=== PATIENT | female | born 1955 | race Caucasian/White ===

== ENCOUNTER 2016-12-28 15:40 | Emergency (ER) | payer OTHER ==
[~2016-12-28] VITALS: Ht 157.5 cm; Wt 90.7 kg
[~2016-12-28 15:40] MED LIST: CALC-1180 PO; FLUO20CA36 PO; LOSA50TA21 PO; MAGN400T30 PO; NAPR500T6 PO; PROP10TA10 PO; RIBO100T6 PO; SIMV40TA5 PO; TOPI25TA PO
--- NOTE | 2016-12-28 16:15 | NUR ---
DR GUILLEN AT THE BEDSIDE FOR EVAL AND EXAM.
[2016-12-28] MEDS ORDERED: FLEET ENEMA 133 ML BOTTLE RC ONE ×4 (17:00→17:55)
[2016-12-28 18:15] VITALS: BP 139/72
[2016-12-28] MEDS ORDERED: ACETAMINOPHEN ES 500 MG TABLET PO ONE (18:15)
--- NOTE | 2016-12-28 18:16 | NUR ---
Patient discharged to home in stable conditon. Written and verbal after care instructions given. Patient verbalizes understanding of instructions.
[2016-12-28] MEDS ORDERED: ACETAMINOPHEN ES 500 MG TABLET ONE (18:21)
== END 2016-12-28 18:17 | disposition home or self-care (01) ==
LOC: ER 15:40
DX: K59.00 Constipation, unspecified (principal); G43.909 Migraine, unspecified, not intractable, without status migrainosus; F32.9 Major depressive disorder, single episode, unspecified; Z88.1 Allergy status to other antibiotic agents
CPT/HCPCS: 74000; 99284; A4663

== ENCOUNTER 2017-03-12 21:12 | Inpatient (IN) | payer OTHER ==
[~2017-03-12] VITALS: Ht 154.9 cm; Wt 82.6 kg
[2017-03-12] MEDS ORDERED: BENZONATATE 100 MG CAPSULE PO ONE (22:30)
[2017-03-12] MEDS ORDERED: HYDROCODONE BIT/HOMATROPINE 5 ML UDC PO ONE (22:30)
[2017-03-12] MEDS ORDERED: ALBUTEROL SULFATE 2.5 MG/3 ML NEBU NEB ONE ×2 (22:30→23:00)
[2017-03-12] MEDS ORDERED: ALBUTEROL SULFATE 2.5 MG/3 ML NEBU ONE ×2 (22:45→23:37)
[2017-03-12] MEDS ORDERED: HYDROCODONE BIT/HOMATROPINE 5 ML UDC ONE (22:48)
[2017-03-12] MEDS ORDERED: BENZONATATE 100 MG CAPSULE ONE (22:48)
[2017-03-12] MEDS ORDERED: MORPHINE SULFATE 2 MG/1 ML DISP.SYRIN IV ONE (23:00)
[2017-03-12] MEDS ORDERED: ONDANSETRON 4 MG/2 ML VIAL IV ONE (23:00)
[2017-03-12] MEDS ORDERED: IV NORMAL SALINE 1000 ML BAG IV ONE (23:00)
[2017-03-12 23:15] LABS: BASOPHILS % (AUTO) 0.6 % (0.0-2.0); EOSINOPHILS % (AUTO) 0.6 % (0.0-7.0); HEMATOCRIT 39.3 % (37-47); HEMOGLOBIN 13.2 G/DL (12.0-16.0); LYMPHOCYTES # (AUTO) 2.9 K/UL (0.8-4.8); LYMPHOCYTES % (AUTO) 45.6 % (20.5-51.5); MEAN CORPUSCULAR HEMOGLOBIN 27.4 UUG (27.0-31.0); MEAN CORPUSCULAR HGB CONC 34 g/dL (32.0-37.0); MEAN CORPUSCULAR VOLUME 81.8 FL (81.0-99.0); MONOCYTES # (AUTO) 0.7 K/UL (0.1-1.30); MONOCYTES % (AUTO) 11.8 % (0.0-11.0); NEUTROPHILS # (AUTO) 2.6 K/UL (1.8-8.9); NEUTROPHILS % (AUTO) 41.4 % (38.5-71.5); PLATELET COUNT (AUTO) 199 K/UL (150-450); RED BLOOD CELL COUNT(AUTO) 4.81 MIL/UL (4.2-5.4); WHITE BLOOD COUNT (AUTO) 6.2 K/UL (4.0-11.2)
[2017-03-12] MEDS ORDERED: ONDANSETRON 4 MG/2 ML VIAL ONE (23:23)
[2017-03-12] MEDS ORDERED: MORPHINE SULFATE 4 MG/1 ML DISP.SYRIN ONE (23:23)
[2017-03-12 23:26] LABS: CREATININE 0.9 mg/dL (0.6-1.3); POTASSIUM 3.6 mmol/L (3.5-5.1)
[2017-03-12 23:31] LABS: BILIRUBIN,DIRECT 0.1 mg/dL (0.0-0.2); BILIRUBIN,TOTAL 0.3 mg/dL (0.2-1.0); TOTAL PROTEIN, SERUM 7.4 g/dL (6.4-8.2)
[2017-03-13] MEDS ORDERED: methylPREDNISolone SOD SUCC 125 MG/2 ML VIAL IV ONE
[2017-03-13] MEDS ORDERED: MAGNESIUM SULFATE/D5W 100 ML IV SCH
[2017-03-13] MEDS ORDERED: methylPREDNISolone SOD SUCC 125 MG/2 ML VIAL ONE (00:10)
[2017-03-13] MEDS ORDERED: MAGNESIUM SULFATE/D5W 100 ML ONE (00:11)
[2017-03-13] MEDS ORDERED: ONDANSETRON 4 MG/2 ML VIAL IV ONE (01:30)
[2017-03-13] MEDS ORDERED: HYDROMORPHONE 1 MG/1 ML DISP.SYRIN IV ONE (01:30)
[2017-03-13] MEDS ORDERED: ALBUTEROL SULFATE 2.5 MG/3 ML NEBU NEB ONE (01:30)
[2017-03-13] MEDS ORDERED: LEVA15HF5 IH (01:42)
[2017-03-13] MEDS ORDERED: LEVO500T2 PO (01:42)
[2017-03-13] MEDS ORDERED: D-ME118S12 PO (01:42)
[2017-03-13] MEDS ORDERED: ALBUTEROL SULFATE 2.5 MG/ 0.5 ML NEBU ONE (01:51)
--- NOTE | 2017-03-13 01:55 | NUR ---
Call placed to [facility], Dr. Clark will be paged.
[2017-03-13] MEDS ORDERED: HYDROMORPHONE 2 MG/1 ML DISP.SYRIN ONE (02:04)
[2017-03-13] MEDS ORDERED: ONDANSETRON 4 MG/2 ML VIAL ONE (02:04)
--- NOTE | 2017-03-13 02:25 | NUR ---
PT WAS BROUGHT IN TO FLOOR VIA TERRY A/O X3. ADMITTED TO [facility] UNDER FRJolly CAGLE/MURIEL HO. INITIATE ADMISSION ASSESSMENT. WILL CALL FOR ORDERS.
--- NOTE | 2017-03-13 02:45 | NUR ---
Pt. admitted to [facility], under care of Dr. Clark Belongs List completed
[2017-03-13 02:51] VITALS: BP 113/58
[2017-03-13] MEDS ORDERED: IV NS 1000 ML 1,000 ML IV PRN (06:23)
[2017-03-13] MEDS ORDERED: Z GUARD REMEDY PASTE 57 GM TUBE TOP PRN (06:30)
[2017-03-13] MEDS ORDERED: ONDANSETRON 4 MG/2 ML VIAL IV PRN (06:30)
[2017-03-13] MEDS ORDERED: CEFTRIAXONE 1 G in IV DEXTROSE 5% 50 ML IV SCH (06:30)
[2017-03-13 06:54] VITALS: BP 108/55
--- NOTE | 2017-03-13 07:00 | NUR ---
AWAITING FOR IV ATB FROM PHARMACY. ENDORSED TO AM NURSE.
[2017-03-13] MEDS: IPRATROPIUM BROMIDE 0.5 MG/2.5 ML NEBU NEB SCH ×4 (07:49→20:02)
[2017-03-13] MEDS: ALBUTEROL SULFATE 2.5 MG/ 0.5 ML NEBU NEB SCH ×4 (07:50→20:03)
[2017-03-13] MEDS ORDERED: PROMETHAZINE/CODEINE 5 ML UDC PO PRN (08:00)
[2017-03-13] MEDS: LOSARTAN POTASSIUM 50 MG TABLET PO SCH ×2 (08:13→17:02)
[2017-03-13] MEDS: MAGNESIUM OXIDE 400 MG TABLET PO SCH (08:14)
[2017-03-13] MEDS: PROPRANOLOL HCL 10 MG TABLET PO SCH ×2 (08:14→17:02)
--- NOTE | 2017-03-13 08:17 | NUR ---
segundo and harish not given bp 98/64 Addendum: 03/13/17 at 0817 by KAREN HARLEY RN Amended: Links added.
[2017-03-13] MEDS: NAPROXEN 500 MG TABLET PO PRN (08:38)
[2017-03-13] MEDS: GUAIFENESIN/CODEINE 5 ML LIQUID UDC PO PRN ×3 (08:39→21:39)
--- NOTE | 2017-03-13 08:43 | NUR ---
medicated for persistent cough, also medicated for generalized body aches. Addendum: 03/13/17 at 0844 by KAREN HARLEY RN Amended: Links added.
[2017-03-13] MEDS ORDERED: AZITHROMYCIN IV 250 MG in IV DEXTROSE 5% 250 ML IV SCH (09:00)
[2017-03-13] MEDS: LEVOFLOXACIN 750MG/D5W 150 ML IV SCH (09:26)
[2017-03-13 11:16] VITALS: BP 98/51
--- NOTE | 2017-03-13 13:31 | NUR ---
SEEN BY DR CAMPO. ORDERS RECEIVED Addendum: 03/13/17 at 1331 by KAREN HARLEY RN Amended: Links added.
[2017-03-13] MEDS: methylPREDNISolone SOD SUCC 125 MG/2 ML VIAL IV SCH ×2 (13:46→21:39)
--- NOTE | 2017-03-13 13:47 | NUR ---
medicated for persistent cough. Addendum: 03/13/17 at 1347 by KAREN HARLEY RN Amended: Links added.
[2017-03-13 15:07] VITALS: BP 132/75
[2017-03-13] MEDS: MONTELUKAST SODIUM 10 MG TABLET PO SCH (17:02)
--- NOTE | 2017-03-13 19:30 | NUR ---
RECEIVED SHIFT REPORT FROM PREVIOUS SHIFT NURSE. PATIENT IS RECEIVING BREATHING TREATMENT, IN STABLE CONDITION, NO S/S OF DISTRESS. PATIENT IS AMBULATORY, A/OX3. PATIENT IS SAFE, LOCKED/LOW POSITION WITH SIDE RAILS UPX2. SAFETY AND COMFORT WILL BE PROVIDED THROUGHOUT SHIFT.
[2017-03-13 20:00] VITALS: BP 137/40
[2017-03-13] MEDS: SIMVASTATIN 40 MG TABLET PO SCH (21:39)
[2017-03-14] MEDS: ZOLPIDEM 5 MG TABLET PO PRN ×2 (01:26→22:19)
[2017-03-14] MEDS: ALBUTEROL SULFATE 2.5 MG/ 0.5 ML NEBU NEB SCH ×5 (02:42→19:20)
[2017-03-14 04:00] VITALS: BP 135/64
[2017-03-14] MEDS: methylPREDNISolone SOD SUCC 125 MG/2 ML VIAL IV SCH ×3 (06:14→21:13)
[2017-03-14 06:25] LABS: BASOPHILS % (AUTO) 0.1 % (0.0-2.0); EOSINOPHILS % (AUTO) 0.1 % (0.0-7.0); HEMATOCRIT 38.5 % (37-47); HEMOGLOBIN 12.5 G/DL (12.0-16.0); LYMPHOCYTES # (AUTO) 1.5 K/UL (0.8-4.8); LYMPHOCYTES % (AUTO) 11.6 % (20.5-51.5); MEAN CORPUSCULAR HGB CONC 32 g/dL (32.0-37.0); MEAN CORPUSCULAR VOLUME 83.4 FL (81.0-99.0); MONOCYTES # (AUTO) 0.5 K/UL (0.1-1.30); MONOCYTES % (AUTO) 3.9 % (0.0-11.0); NEUTROPHILS # (AUTO) 10.9 K/UL (1.8-8.9); NEUTROPHILS % (AUTO) 84.3 % (38.5-71.5); PLATELET COUNT (AUTO) 228 K/UL (150-450); RED BLOOD CELL COUNT(AUTO) 4.62 MIL/UL (4.2-5.4); WHITE BLOOD COUNT (AUTO) 12.9 K/UL (4.0-11.2)
[2017-03-14 06:49] LABS: THYROID STIMULATING HORMONE 0.743 mIU/mL (0.358-3.740)
[2017-03-14 06:53] LABS: BILIRUBIN,TOTAL 0.1 mg/dL (0.2-1.0); CREATININE 0.7 mg/dL (0.6-1.3); PHOSPHOROUS 2.6 mg/dL (2.5-4.9); POTASSIUM 4.3 mmol/L (3.5-5.1); TOTAL PROTEIN, SERUM 6.7 g/dL (6.4-8.2)
[2017-03-14] MEDS: IPRATROPIUM BROMIDE 0.5 MG/2.5 ML NEBU NEB SCH ×4 (07:34→19:19)
[2017-03-14] MEDS: PROPRANOLOL HCL 10 MG TABLET PO SCH ×2 (09:14→17:12)
[2017-03-14] MEDS: LOSARTAN POTASSIUM 50 MG TABLET PO SCH ×2 (09:15→17:12)
[2017-03-14] MEDS: MAGNESIUM OXIDE 400 MG TABLET PO SCH (09:15)
[2017-03-14] MEDS: LEVOFLOXACIN 750MG/D5W 150 ML IV SCH (09:22)
[2017-03-14] MEDS: FUROSEMIDE 20 MG/2 ML VIAL IV SCH (11:04)
[2017-03-14] MEDS: GUAIFENESIN/CODEINE 5 ML LIQUID UDC PO PRN (11:04)
[2017-03-14 11:34] VITALS: BP 116/79
[2017-03-14 15:30] VITALS: BP 137/75
[2017-03-14] MEDS: MONTELUKAST SODIUM 10 MG TABLET PO SCH (17:12)
--- NOTE | 2017-03-14 20:00 | NUR ---
PT ALERT AWAKE IN ROOM COMPLAINING OF CONSTIPATION PAST 4 DAYS WITH SOME NASAL CONGESTION. DENIES ANY PAIN OR SHORTNESS OF BREATHE AT THIS TIME. VITAL SIGNS ARE WNL. RIGHT AC HEP LOCK NOTED PAIN UPON FLUSHING NS. DR HO NOTIFIED OF PT'S REQUEST. CONTINUE TO MONITOR. CALL LIGHT PLACED WITHIN REACH.
[2017-03-14] MEDS: SIMVASTATIN 40 MG TABLET PO SCH (20:06)
[2017-03-14 20:37] VITALS: BP 133/84
[2017-03-14] MEDS: BISACODYL 5 MG TABLET.DR PO PRN (21:58)
[2017-03-14] MEDS ORDERED: BISACODYL 5 MG TABLET.DR PO ONE (22:11)
--- NOTE | 2017-03-15 01:00 | NUR ---
PT ASLEEP AT THIS TIME. NO S/S OF ACUTE DISTRESS. CONTINUE TO MONITOR.
[2017-03-15 04:59] VITALS: BP 155/80
[2017-03-15] MEDS: methylPREDNISolone SOD SUCC 125 MG/2 ML VIAL IV SCH ×3 (06:46→21:03)
[2017-03-15] MEDS: IPRATROPIUM BROMIDE 0.5 MG/2.5 ML NEBU NEB SCH ×4 (07:00→19:47)
[2017-03-15] MEDS: ALBUTEROL SULFATE 2.5 MG/ 0.5 ML NEBU NEB SCH ×4 (07:00→19:47)
[2017-03-15] MEDS: CETIRIZINE HCL 10 MG TABLET PO SCH (09:55)
[2017-03-15] MEDS: MAGNESIUM OXIDE 400 MG TABLET PO SCH (09:55)
[2017-03-15] MEDS: FUROSEMIDE 20 MG/2 ML VIAL IV SCH (09:56)
[2017-03-15] MEDS: LEVOFLOXACIN 750MG/D5W 150 ML IV SCH (10:01)
[2017-03-15] MEDS: PROPRANOLOL HCL 10 MG TABLET PO SCH ×2 (10:09→17:29)
[2017-03-15] MEDS: LOSARTAN POTASSIUM 50 MG TABLET PO SCH ×2 (10:11→17:28)
[2017-03-15] MEDS: GUAIFENESIN/CODEINE 5 ML LIQUID UDC PO PRN ×2 (10:23→15:15)
[2017-03-15] MEDS ORDERED: PROMETHAZINE/CODEINE 5 ML UDC PO PRN ×2 (11:00→11:30)
[2017-03-15 11:15] VITALS: BP 147/89
[2017-03-15] MEDS ORDERED: GUAIFENESIN/CODEINE 5 ML LIQUID UDC PO PRN (11:15)
[2017-03-15] MEDS: LEVOFLOXACIN 500 MG TABLET PO SCH (13:59)
[2017-03-15 15:40] VITALS: BP 151/94
[2017-03-15] MEDS: MONTELUKAST SODIUM 10 MG TABLET PO SCH (17:29)
--- NOTE | 2017-03-15 18:30 | NUR ---
PT. WALKING AROUND THE UNIT AND SITTING UP IN CHAIR ALL SHIFT. PT. HAS A MODERATE COUGH THAT IS SLIGHTLY PRODUCTIVE AT END SHIFT. NO ACUTE DISTRESS.
--- NOTE | 2017-03-15 19:30 | NUR ---
PT IN ROOM ALERT AWAKE IN NO ACUTE DISTRESS. OCCASIONAL PRESENT WITH MINIMAL PRODUCTIVE COUGH. OXYGEN SAT NOTED 95% RA. NO S/S OF RESP DISTRESS. PT INSTRUCTED TO USE OXYGEN VIA N/C AND TO CONTINUE BREATHING TX SCHEDULED. PT TO CONTINUE RECEIVING STOOL SOFTNER DUE TO CONSTIPATION. PT REQUESTED AMBIEN FOR TONIGHT. CALL LIGHT PLACED WITHIN REACH. CONTINUE TO MONITOR.
[2017-03-15] MEDS: SIMVASTATIN 40 MG TABLET PO SCH (20:03)
[2017-03-15] MEDS: BISACODYL 5 MG TABLET.DR PO PRN (20:04)
[2017-03-15 20:11] VITALS: BP 141/81
[2017-03-15] MEDS: HYDROCODONE BIT/HOMATROPINE 5 ML UDC PO PRN (20:54)
[2017-03-15] MEDS: ZOLPIDEM 5 MG TABLET PO PRN (22:43)
[2017-03-16 06:07] VITALS: BP 154/80
[2017-03-16] MEDS: methylPREDNISolone SOD SUCC 125 MG/2 ML VIAL IV SCH (06:45)
[2017-03-16] MEDS: ALBUTEROL SULFATE 2.5 MG/ 0.5 ML NEBU NEB SCH ×4 (07:17→19:04)
[2017-03-16] MEDS: IPRATROPIUM BROMIDE 0.5 MG/2.5 ML NEBU NEB SCH ×4 (07:17→19:04)
--- NOTE | 2017-03-16 08:00 | NUR ---
PT ASLEEP AT THIS TIME. NO S/S OF ACUTE DISTRESS. CONTINUE TO MONITOR. CALL LIGHT WITH IN REACH ,PT IS AXOX4
[2017-03-16] MEDS: PROPRANOLOL HCL 10 MG TABLET PO SCH ×2 (08:05→16:21)
[2017-03-16] MEDS: MAGNESIUM OXIDE 400 MG TABLET PO SCH (08:05)
[2017-03-16] MEDS: CETIRIZINE HCL 10 MG TABLET PO SCH (08:05)
[2017-03-16] MEDS: LOSARTAN POTASSIUM 50 MG TABLET PO SCH ×2 (08:06→16:21)
[2017-03-16] MEDS: FUROSEMIDE 20 MG/2 ML VIAL IV SCH (08:23)
[2017-03-16] MEDS ORDERED: LEVOFLOXACIN 500 MG TABLET PO SCH (09:00)
[2017-03-16 11:13] VITALS: BP 116/78
--- NOTE | 2017-03-16 11:14 | NUR ---
PT C/O SOB AND HOT ,DIZZY , CHECK THE PT BP IS 116/78 RESP 20 PULSE 74 TEMP 98 ORAL O2 97 ON 2L MD KONG MADE AWARE.PT IS RESTING IN HER BED
[2017-03-16 11:35] VITALS: BP 133/71
[2017-03-16] MEDS: LEVOFLOXACIN 500 MG TABLET PO SCH (12:51)
[2017-03-16] MEDS: methylPREDNISolone SOD SUCC 40 MG/ML VIAL IV SCH ×2 (13:39→21:01)
[2017-03-16] MEDS ORDERED: methylPREDNISolone SOD SUCC 125 MG/2 ML VIAL IV SCH (14:00)
[2017-03-16 16:02] VITALS: BP 145/75
[2017-03-16] MEDS: FLUTICASONE/VILANTEROL 1 EACH BLST.W.DEV INH SCH (16:20)
[2017-03-16] MEDS: MONTELUKAST SODIUM 10 MG TABLET PO SCH (17:39)
--- NOTE | 2017-03-16 19:30 | NUR ---
Pt alert awake in room in no respiratory distress. Currently receiving nebulizer treatment sitting in chair. Non productive cough still present and continue antibiotic Levaquin PO therapy. Stated having a bowel movement today. No pain noted at this time. Continue to monitor. Call light placed within reach and encouraged to continue increasing fluid intake.
[2017-03-16 20:00] VITALS: BP 140/74
[2017-03-16] MEDS: SIMVASTATIN 40 MG TABLET PO SCH (20:00)
[2017-03-16] MEDS: BISACODYL 5 MG TABLET.DR PO PRN (20:00)
[2017-03-16] MEDS ORDERED: FLUTICASONE/SALMETEROL 250/50 INHALER INH SCH (21:00)
[2017-03-16] MEDS: HYDROCODONE BIT/HOMATROPINE 5 ML UDC PO PRN (21:01)
--- NOTE | 2017-03-17 01:00 | NUR ---
Pt is asleep at this time. No acute distress noted or increased coughing. Continue to monitor.
--- NOTE | 2017-03-17 05:00 | NUR ---
Pt asleep in room in no acute distress. No ambien needed per pt earlier last night.
[2017-03-17] MEDS: methylPREDNISolone SOD SUCC 40 MG/ML VIAL IV SCH ×2 (05:51→20:49)
[2017-03-17 06:04] VITALS: BP 137/77
[2017-03-17] MEDS: ALBUTEROL SULFATE 2.5 MG/ 0.5 ML NEBU NEB SCH ×4 (06:35→19:09)
[2017-03-17] MEDS: IPRATROPIUM BROMIDE 0.5 MG/2.5 ML NEBU NEB SCH ×4 (06:35→19:09)
[2017-03-17] MEDS: FLUTICASONE/VILANTEROL 1 EACH BLST.W.DEV INH SCH (09:16)
[2017-03-17] MEDS: CETIRIZINE HCL 10 MG TABLET PO SCH (09:20)
[2017-03-17] MEDS: PROPRANOLOL HCL 10 MG TABLET PO SCH ×2 (09:20→16:39)
[2017-03-17] MEDS: LOSARTAN POTASSIUM 50 MG TABLET PO SCH ×2 (09:21→16:39)
[2017-03-17] MEDS: MAGNESIUM OXIDE 400 MG TABLET PO SCH (09:21)
--- NOTE | 2017-03-17 09:30 | NUR ---
IV INFILTRATE RESTART A NEW LINE ON RT HAND #[id number]
[2017-03-17] MEDS ORDERED: DEXTROSE 50% 50 ML DISP.SYRIN IV PRN (10:15)
[2017-03-17] MEDS: FUROSEMIDE 20 MG/2 ML VIAL IV SCH (10:36)
[2017-03-17 11:25] LABS: BASOPHILS # (AUTO) 0.1 K/uL (0.0-8.0); BASOPHILS % (AUTO) 0.6 % (0.0-2.0); HEMOGLOBIN 14.4 G/DL (12.0-16.0); LYMPHOCYTES # (AUTO) 2.3 K/UL (0.8-4.8); LYMPHOCYTES % (AUTO) 16.8 % (20.5-51.5); MEAN CORPUSCULAR HEMOGLOBIN 27.9 UUG (27.0-31.0); MEAN CORPUSCULAR HGB CONC 34 g/dL (32.0-37.0); MEAN CORPUSCULAR VOLUME 81.7 FL (81.0-99.0); MONOCYTES # (AUTO) 0.5 K/UL (0.1-1.30); MONOCYTES % (AUTO) 3.7 % (0.0-11.0); NEUTROPHILS # (AUTO) 10.6 K/UL (1.8-8.9); NEUTROPHILS % (AUTO) 78.9 % (38.5-71.5); PLATELET COUNT (AUTO) 341 K/UL (150-450); RED BLOOD CELL COUNT(AUTO) 5.14 MIL/UL (4.2-5.4); WHITE BLOOD COUNT (AUTO) 13.5 K/UL (4.0-11.2)
[2017-03-17 11:37] VITALS: BP 150/80
[2017-03-17 11:37] LABS: BILIRUBIN,TOTAL 0.3 mg/dL (0.2-1.0); CREATININE 0.9 mg/dL (0.6-1.3); PHOSPHOROUS 2.9 mg/dL (2.5-4.9); POTASSIUM 3.8 mmol/L (3.5-5.1)
[2017-03-17] MEDS: HYDROCODONE BIT/HOMATROPINE 5 ML UDC PO PRN ×2 (11:37→15:39)
[2017-03-17] MEDS: BLOOD SUGAR DIAGNOSTIC 1 EACH STRIP VI SCH ×3 (12:08→20:52)
[2017-03-17] MEDS: INSULIN REGULAR, HUMAN 300 UNIT/3 ML VIAL SQ PRN ×3 (12:13→20:59)
[2017-03-17] MEDS ORDERED: hydrALAZINE HCL 25 MG TABLET PO PRN (13:00)
[2017-03-17] MEDS ORDERED: ALBUTEROL SULFATE 2.5 MG/3 ML NEBU NEB PRN (13:00)
[2017-03-17] MEDS ORDERED: IPRATROPIUM BROMIDE 0.5 MG/2.5 ML NEBU NEB PRN (13:00)
[2017-03-17] MEDS ORDERED: GUAIFENESIN/CODEINE 5 ML LIQUID UDC PO PRN (13:00)
[2017-03-17] MEDS: LEVOFLOXACIN 500 MG TABLET PO SCH (13:13)
[2017-03-17] MEDS ORDERED: ALBUTEROL SULFATE 2.5 MG/ 0.5 ML NEBU NEB PRN (13:30)
[2017-03-17] MEDS: ACETAMINOPHEN 325 MG TABLET PO PRN (14:43)
[2017-03-17 15:37] VITALS: BP 147/88
--- NOTE | 2017-03-17 17:00 | NUR ---
STABLE CONDITION NO ACUTE DISTRESS PAIN AND COUGHING UNDER CONTROL SAFETY MEASURE PROVIDED CALL LIGHT WITHIN REACH AND INSTRUCTION TO CALL WHEN NEEDED
[2017-03-17] MEDS: MONTELUKAST SODIUM 10 MG TABLET PO SCH (17:31)
--- NOTE | 2017-03-17 19:30 | NUR ---
Received patient sitting comfortably in the chair. No acute distress noted. Patient is currently getting a breathing tx at the moment. Noted dry cough. Safety initiated, call light within reach. Will continue to monitor.
[2017-03-17 20:15] VITALS: BP 129/73
[2017-03-17] MEDS: BISACODYL 5 MG TABLET.DR PO PRN (20:49)
[2017-03-17] MEDS: SIMVASTATIN 40 MG TABLET PO SCH (20:49)
[2017-03-17] MEDS: ZOLPIDEM 5 MG TABLET PO PRN (22:04)
--- NOTE | 2017-03-17 22:30 | NUR ---
Pt alert awake in room in no acute distress. Verbalized still having episodes of non productive cough. Pt states she would like to have her cough syrup medication sometime tonight and will let nurse know. Denies any pain. Refuses oxygen at this time. No bowel movement today. Continue to monitor.
[2017-03-18] MEDS: HYDROCODONE BIT/HOMATROPINE 5 ML UDC PO PRN ×3 (00:10→14:06)
--- NOTE | 2017-03-18 01:00 | NUR ---
Pt able to sleep after PRN cough syrup given. No episodes of coughing at this time. Continue to monitor.
[2017-03-18 04:52] VITALS: BP 129/78
[2017-03-18] MEDS: BLOOD SUGAR DIAGNOSTIC 1 EACH STRIP VI SCH ×4 (06:49→21:05)
[2017-03-18 06:54] LABS: MEAN CORPUSCULAR HEMOGLOBIN 28.5 uug (24.7-32.8)
[2017-03-18] MEDS: INSULIN REGULAR, HUMAN 300 UNIT/3 ML VIAL SQ PRN ×4 (06:56→21:07)
[2017-03-18 07:06] LABS: BASOPHILS % (AUTO) 0.2 % (0.0-2.0); HEMATOCRIT 38.8 % (31.2-41.9); HEMOGLOBIN 13.5 g/dL (10.9-14.3); LYMPHOCYTES # (AUTO) 2.5 K/uL (20.0-40.0); LYMPHOCYTES % (AUTO) 25.2 % (20.5-51.5); MEAN CORPUSCULAR HGB CONC 35 g/dL (32.3-35.6); MEAN CORPUSCULAR VOLUME 82.2 fL (75.5-95.3); MONOCYTES # (AUTO) 0.4 K/uL (2.0-10.0); MONOCYTES % (AUTO) 4.1 % (0.0-11.0); NEUTROPHILS # (AUTO) 7.1 K/uL (1.8-8.9); NEUTROPHILS % (AUTO) 70.5 % (38.5-71.5); PLATELET COUNT (AUTO) 283 K/uL (179-408); RED BLOOD CELL COUNT(AUTO) 4.73 MIL/uL (3.63-4.92)
[2017-03-18] MEDS: IPRATROPIUM BROMIDE 0.5 MG/2.5 ML NEBU NEB SCH ×4 (07:12→19:35)
[2017-03-18] MEDS: ALBUTEROL SULFATE 2.5 MG/ 0.5 ML NEBU NEB SCH ×4 (07:12→19:35)
[2017-03-18 07:54] LABS: BILIRUBIN,TOTAL 0.2 mg/dL (0.2-1.0); CREATININE 0.8 mg/dL (0.6-1.3); MAGNESIUM 1.9 mg/dL (1.8-2.4); PHOSPHOROUS 3.8 mg/dL (2.5-4.9); POTASSIUM 4.5 mmol/L (3.5-5.1); TOTAL PROTEIN, SERUM 6.1 g/dL (6.4-8.2)
--- NOTE | 2017-03-18 08:00 | NUR ---
Pt wheezing and coughing. HHN tx given by RT. Notified MD that pt has no relief from coughing and cough medicine not working. CXR ordered. Discussed plan of care with patient re: proper management of her wheezing, cough, and pain management. Call light is within reach. Pt agreeable with plan of care
[2017-03-18] MEDS: CETIRIZINE HCL 10 MG TABLET PO SCH (08:10)
[2017-03-18] MEDS: FLUTICASONE/VILANTEROL 1 EACH BLST.W.DEV INH SCH (08:10)
[2017-03-18] MEDS: FUROSEMIDE 20 MG/2 ML VIAL IV SCH (08:10)
[2017-03-18] MEDS: MAGNESIUM OXIDE 400 MG TABLET PO SCH (08:10)
[2017-03-18] MEDS: methylPREDNISolone SOD SUCC 40 MG/ML VIAL IV SCH ×3 (08:10→21:03)
[2017-03-18] MEDS: PROPRANOLOL HCL 10 MG TABLET PO SCH ×2 (08:15→16:40)
[2017-03-18] MEDS: LOSARTAN POTASSIUM 50 MG TABLET PO SCH ×2 (08:15→16:39)
[2017-03-18] MEDS: NAPROXEN 500 MG TABLET PO PRN ×2 (08:20→21:02)
[2017-03-18 10:31] LABS: BAND % (MANUAL) 2 % (0-10); LYMPHOCYTES % (MANUAL) 26 % (20-40); METAMYELOCYTES % 2 % (0-1); MONOCYTES % (MANUAL) 4 % (2-10); NEUTROPHILS % (MANUAL) 66 % (42-75)
[2017-03-18 12:08] VITALS: BP 144/78
[2017-03-18] MEDS: LEVOFLOXACIN 500 MG TABLET PO SCH (13:02)
--- NOTE | 2017-03-18 15:49 | NUR ---
Clinical Pharmacy Note: Vancomycin Pharmacy to Dose Subjective: To start vancomycin in this 61 y/o female for "documented infection" - MD note mentions worsening cough despite other abx Objective: height 154cm 82kg BUN 17 Scr 0.8 Wbc 10 temp 98.1 Assessment/Plan Will start vanco 1gm q17hr for estimated trough 14.79, first dose todat at 1600. Will check torugh before 4th scheduled dose (not ordered yet). Will follow
[2017-03-18] MEDS: VANCOMYCIN IV 1 G in PREMIXED 0 EACH IV SCH (16:35)
[2017-03-18 16:38] VITALS: BP 109/58
[2017-03-18] MEDS: MONTELUKAST SODIUM 10 MG TABLET PO SCH (16:40)
[2017-03-18] MEDS: BISACODYL 5 MG TABLET.DR PO PRN (16:43)
[2017-03-18 17:41] LABS: *BILIRUBIN,URIN NEGATIVE (NEGATIVE); *BLOOD, URINE NEGATIVE (NEGATIVE); *CLARITY,URINE CLEAR (CLEAR); *COLOR,URINE LIGHT YELLOW (YELLOW); *KETONES,URINE NEGATIVE (NEGATIVE); *PROTEIN,URINE NEGATIVE (NEGATIVE); *UROBILINOGEN,URINE 0.2 E.U./dl (NORMAL); LEUKOCYTE ESTERASE ,URINE NEGATIVE (NEGATIVE); NITRITE, URINE NEGATIVE (NEGATIVE); UGLUCOSE NEGATIVE (NEGATIVE)
--- NOTE | 2017-03-18 18:00 | NUR ---
Pt not wheezing anymore. Increased in solumedrol effective. Gave pt laxative due to pt has had no bm x 2 days awaiting result. Call light is within reach.
[2017-03-18 18:12] LABS: SQUAMOUS EPITHELIAL CELL,UR FEW /HPF (NONE SEEN); WBC,URINE NONE SEEN /HPF (0-3)
--- NOTE | 2017-03-18 18:53 | NUR ---
Urine sent earlier prior to starting the vancomycin dose. IV was restarted on the left hand with #22 gauge.
--- NOTE | 2017-03-18 19:35 | NUR ---
PT RECEIVED, IN CHAIR, AWAKE. A/OX3. ABLE TO MAKE KNOWN. V/S STABLE. IN NO ACUTE DISTRESS. PT C/O OF GENERALIZED PAIN, FROM SEVERE COUGHING. WILL ADMIN PAIN MEDICATION ORDERED. IV INTACT AND PATENT. ON RA, TOLERATING WELL. NO C/O OF SOB. COUGH CEASED. SAFETY MEASURES IMPLEMENTED. CALL LIGHT WITHIN REACH.
[2017-03-18 20:28] VITALS: BP 138/75
[2017-03-18] MEDS ORDERED: methylPREDNISolone SOD SUCC 40 MG/ML VIAL IV SCH (21:00)
[2017-03-18] MEDS: ZOLPIDEM 5 MG TABLET PO PRN (21:02)
[2017-03-18] MEDS: SIMVASTATIN 40 MG TABLET PO SCH (21:02)
[2017-03-19 04:50] VITALS: BP 124/66
[2017-03-19] MEDS: methylPREDNISolone SOD SUCC 40 MG/ML VIAL IV SCH ×3 (05:43→22:06)
[2017-03-19] MEDS: HYDROCODONE BIT/HOMATROPINE 5 ML UDC PO PRN ×2 (05:43→21:54)
[2017-03-19 06:04] LABS: BASOPHILS % (AUTO) 0.4 % (0.0-2.0); HEMOGLOBIN 13.3 G/DL (12.0-16.0); LYMPHOCYTES # (AUTO) 2.3 K/UL (0.8-4.8); LYMPHOCYTES % (AUTO) 18.7 % (20.5-51.5); MEAN CORPUSCULAR HEMOGLOBIN 27.4 UUG (27.0-31.0); MEAN CORPUSCULAR HGB CONC 33 g/dL (32.0-37.0); MEAN CORPUSCULAR VOLUME 82.8 FL (81.0-99.0); MONOCYTES # (AUTO) 0.5 K/UL (0.1-1.30); MONOCYTES % (AUTO) 4.3 % (0.0-11.0); NEUTROPHILS # (AUTO) 9.6 K/UL (1.8-8.9); NEUTROPHILS % (AUTO) 76.6 % (38.5-71.5); PLATELET COUNT (AUTO) 343 K/UL (150-450); RED BLOOD CELL COUNT(AUTO) 4.83 MIL/UL (4.2-5.4); WHITE BLOOD COUNT (AUTO) 12.4 K/UL (4.0-11.2)
[2017-03-19 06:16] LABS: BILIRUBIN,TOTAL 0.3 mg/dL (0.2-1.0); CREATININE 0.8 mg/dL (0.6-1.3); MAGNESIUM 2.2 mg/dL (1.8-2.4); PHOSPHOROUS 3.5 mg/dL (2.5-4.9); POTASSIUM 4.3 mmol/L (3.5-5.1); TOTAL PROTEIN, SERUM 6.1 g/dL (6.4-8.2)
--- NOTE | 2017-03-19 06:44 | NUR ---
END OF SHIFT NOTES. PT SLEPT WELL THROUGHOUT SHIFT. IN STABLE CONDITION. WOKE UP WITH CONGESTION AND COUGH. ADMINISTERED SOLUMEDROL AND HYDROMET ORDERED. IV INTACT AND PATENT. HOB ELEVATED. 2L NC IN PLACE. NO C/O OF SOB. PAIN MANAGED. CONT TO HAVE NO BM, C/O CONSTIPATION AND STOMACH PAIN. WILL ENDORSE TO DAYSHIFT. SAFETY MAINTAINED. CALL LIGHT WITHIN REACH.
[2017-03-19] MEDS: BLOOD SUGAR DIAGNOSTIC 1 EACH STRIP VI SCH ×4 (06:59→21:56)
[2017-03-19] MEDS: ALBUTEROL SULFATE 2.5 MG/ 0.5 ML NEBU NEB SCH ×4 (07:08→19:50)
[2017-03-19] MEDS: IPRATROPIUM BROMIDE 0.5 MG/2.5 ML NEBU NEB SCH ×4 (07:08→19:50)
--- NOTE | 2017-03-19 07:45 | NUR ---
Awake, alert, oriented x 4, sitting at the edge of the bed, on HHN, complaining of dryness/congestion of nasal passages. O2 changed to humidified NC at 2L.
[2017-03-19] MEDS ORDERED: MAGNESIUM CITRATE 296 ML BOTTLE PO ONE (08:30)
--- NOTE | 2017-03-19 08:30 | NUR ---
No BM x 4 days. Mag Citrate po given.
[2017-03-19] MEDS: FLUTICASONE/VILANTEROL 1 EACH BLST.W.DEV INH SCH (08:58)
[2017-03-19] MEDS: VANCOMYCIN IV 1 G in PREMIXED 0 EACH IV SCH (08:58)
[2017-03-19] MEDS: FUROSEMIDE 20 MG/2 ML VIAL IV SCH (08:58)
[2017-03-19] MEDS: CETIRIZINE HCL 10 MG TABLET PO SCH (08:59)
[2017-03-19] MEDS: PROPRANOLOL HCL 10 MG TABLET PO SCH ×2 (08:59→17:12)
[2017-03-19] MEDS: MAGNESIUM OXIDE 400 MG TABLET PO SCH (08:59)
[2017-03-19] MEDS: LOSARTAN POTASSIUM 50 MG TABLET PO SCH ×2 (08:59→17:11)
[2017-03-19] MEDS ORDERED: GLYCERIN ADULT RECTAL SUPP EACH RC ONE (09:30)
--- NOTE | 2017-03-19 10:00 | NUR ---
CT of sinus done
[2017-03-19 11:42] VITALS: BP 118/77
[2017-03-19] MEDS: LEVOFLOXACIN 500 MG TABLET PO SCH (12:20)
[2017-03-19] MEDS: INSULIN REGULAR, HUMAN 300 UNIT/3 ML VIAL SQ PRN ×3 (12:22→22:11)
--- NOTE | 2017-03-19 12:30 | NUR ---
Glycerin suppository given after Mag Citrate was finished
--- NOTE | 2017-03-19 13:55 | NUR ---
Clinical Pharmacy Note: Vancomycin Pharmacy to Dose Subjective: To contiue vancomycin in this 61 y/o female for "documented infection"(acute on chronic bacterial bronchitis, possible pneumonitis/pneumonia) - MD note mentions worsening cough despite other abx Objective: height 154cm 82kg BUN 19 Scr 0.8 Wbc 12.4 temp 97.7 Assessment/Plan Will continue vanco but change dose to 1gm q16hr for estimated trough 15 for possible pna, first dose today at 0900 . Will check trough before 4th scheduled dose (not ordered yet). Will follow
--- NOTE | 2017-03-19 14:00 | NUR ---
Ambulating in the hallway, feeling better. Had 2 small bowel movement
[2017-03-19 16:03] VITALS: BP 151/76
[2017-03-19] MEDS: MONTELUKAST SODIUM 10 MG TABLET PO SCH (17:10)
--- NOTE | 2017-03-19 18:13 | NUR ---
Not in distress. Afebrile
[2017-03-19 20:03] VITALS: BP 138/79
[2017-03-19] MEDS: SIMVASTATIN 40 MG TABLET PO SCH (21:54)
[2017-03-19] MEDS: ACETAMINOPHEN 325 MG TABLET PO PRN (21:54)
[2017-03-19] MEDS: ZOLPIDEM 5 MG TABLET PO PRN (23:50)
[2017-03-20] MEDS: VANCOMYCIN IV 1 G in PREMIXED 0 EACH IV SCH ×2 (01:13→17:39)
[2017-03-20 04:00] VITALS: BP 137/74
[2017-03-20] MEDS: methylPREDNISolone SOD SUCC 40 MG/ML VIAL IV SCH ×3 (06:29→20:07)
[2017-03-20 06:49] LABS: BILIRUBIN,TOTAL 0.4 mg/dL (0.2-1.0); CREATININE 0.8 mg/dL (0.6-1.3); MAGNESIUM 2.1 mg/dL (1.8-2.4); POTASSIUM 4.6 mmol/L (3.5-5.1); TOTAL PROTEIN, SERUM 5.9 g/dL (6.4-8.2)
[2017-03-20 06:52] LABS: BASOPHILS # (AUTO) 0.1 K/uL (0.0-8.0); BASOPHILS % (AUTO) 0.6 % (0.0-2.0); EOSINOPHILS % (AUTO) 0.1 % (0.0-7.0); HEMATOCRIT 38.7 % (31.2-41.9); LYMPHOCYTES # (AUTO) 2.6 K/uL (20.0-40.0); LYMPHOCYTES % (AUTO) 17.8 % (20.5-51.5); MEAN CORPUSCULAR HEMOGLOBIN 27.9 uug (24.7-32.8); MEAN CORPUSCULAR HGB CONC 34 g/dL (32.3-35.6); MEAN CORPUSCULAR VOLUME 83.1 fL (75.5-95.3); MONOCYTES # (AUTO) 0.6 K/uL (2.0-10.0); NEUTROPHILS # (AUTO) 11.2 K/uL (1.8-8.9); NEUTROPHILS % (AUTO) 77.5 % (38.5-71.5); PLATELET COUNT (AUTO) 340 K/uL (179-408); RED BLOOD CELL COUNT(AUTO) 4.66 MIL/uL (3.63-4.92); WHITE BLOOD COUNT (AUTO) 14.5 K/uL (3.8-11.8)
--- NOTE | 2017-03-20 07:32 | NUR ---
Awake, alert, oriented x 4. Off O2.
[2017-03-20] MEDS: FLUTICASONE/VILANTEROL 1 EACH BLST.W.DEV INH SCH (08:21)
[2017-03-20] MEDS: BLOOD SUGAR DIAGNOSTIC 1 EACH STRIP VI SCH ×4 (08:21→20:08)
[2017-03-20] MEDS: CETIRIZINE HCL 10 MG TABLET PO SCH (08:22)
[2017-03-20] MEDS: FUROSEMIDE 20 MG TABLET PO SCH (08:22)
[2017-03-20] MEDS: PROPRANOLOL HCL 10 MG TABLET PO SCH ×2 (08:22→17:40)
[2017-03-20] MEDS: LOSARTAN POTASSIUM 50 MG TABLET PO SCH ×2 (08:22→17:39)
[2017-03-20] MEDS: MAGNESIUM OXIDE 400 MG TABLET PO SCH (08:22)
[2017-03-20] MEDS: INSULIN REGULAR, HUMAN 300 UNIT/3 ML VIAL SQ PRN ×3 (08:25→17:41)
[2017-03-20] MEDS: ALBUTEROL SULFATE 2.5 MG/ 0.5 ML NEBU NEB SCH ×4 (08:29→19:16)
[2017-03-20] MEDS: IPRATROPIUM BROMIDE 0.5 MG/2.5 ML NEBU NEB SCH ×4 (08:29→19:16)
[2017-03-20 09:09] LABS: LYMPHOCYTES % (MANUAL) 14 % (20-40); METAMYELOCYTES % 1 % (0-1); MONOCYTES % (MANUAL) 3 % (2-10); NEUTROPHILS % (MANUAL) 82 % (42-75)
[2017-03-20] MEDS: MAG HYDROX/AL HYDROX/SIMETH 30 ML LIQUID UDC PO PRN ×2 (09:11→22:27)
[2017-03-20] MEDS: NAPROXEN 500 MG TABLET PO PRN (09:13)
--- NOTE | 2017-03-20 09:15 | NUR ---
Complained of back pain, Naproxen po given. Complained of epigastric discomfort, Maalox po given
[2017-03-20] MEDS ORDERED: NORMAL SALINE NASAL 45 ML BOTTLE NS PRN (10:45)
[2017-03-20] MEDS ORDERED: AZITHROMYCIN 250 MG TABLET PO ONE (10:45)
--- NOTE | 2017-03-20 11:15 | NUR ---
Nasal spray applied for nasal congestion. Mucinex po started for cough
[2017-03-20] MEDS: GUAIFENESIN LA 600 MG TABLET.SA PO SCH ×2 (11:19→20:07)
[2017-03-20 11:35] VITALS: BP 111/63
[2017-03-20] MEDS: BUDESONIDE 0.5 MG/2 ML NEBU NEB SCH ×2 (11:44→20:28)
--- NOTE | 2017-03-20 13:08 | NUR ---
Ambulating in the hallway, not in distress
[2017-03-20 15:24] VITALS: BP 156/80
--- NOTE | 2017-03-20 16:35 | NUR ---
Clinical Pharmacy Note: Vancomycin Pharmacy to Dose Subjective: To contiue vancomycin in this 61 y/o female for "documented infection"(acute on chronic bacterial bronchitis, possible pneumonitis/pneumonia) - MD note mentions worsening cough despite other abx Objective: height 154cm 82kg BUN 19 Scr 0.8 Wbc 14.5 temp 98.1 Assessment/Plan Will continue vanco but change dose to 1gm q16hr for estimated trough 15 for possible pna, 2nd dose was today at 0100 . Will check trough before 4th scheduled dose (due tomorrow at 0830). Will check level in am and adjust as needed. Will follow
--- NOTE | 2017-03-20 17:30 | NUR ---
Complaining of body aches. Tylenol po given.
[2017-03-20] MEDS: MONTELUKAST SODIUM 10 MG TABLET PO SCH (17:40)
[2017-03-20] MEDS: ACETAMINOPHEN 325 MG TABLET PO PRN (17:40)
--- NOTE | 2017-03-20 19:37 | NUR ---
Received patient sitting comfortably in the chair. No acute distress noted. Patient is eating at the moment. Patient is in O2 2L NC. A&O x 4. Safety initiated. Call light within reach. Will continue to monitor.
[2017-03-20 20:00] VITALS: BP 147/74
[2017-03-20] MEDS: SIMVASTATIN 40 MG TABLET PO SCH (20:07)
[2017-03-21] MEDS: NAPROXEN 500 MG TABLET PO PRN ×2 (02:10→15:32)
[2017-03-21] MEDS: ZOLPIDEM 5 MG TABLET PO PRN (03:22)
--- NOTE | 2017-03-21 05:58 | NUR ---
No changes t/o shift. No acute distress noted. Patient slept intermittently t/o shift. C/O of generalized pain, meds given stated relief. Vital signs stable. O2 sat 96% on room air. Nourishment provided. Urinating well. Safety and comfort measures maintained t/o shift. All meds given as ordered. All needs met.
[2017-03-21 06:11] VITALS: BP 118/73
[2017-03-21] MEDS: BLOOD SUGAR DIAGNOSTIC 1 EACH STRIP VI SCH ×2 (06:32→12:59)
[2017-03-21] MEDS: IPRATROPIUM BROMIDE 0.5 MG/2.5 ML NEBU NEB SCH ×3 (07:14→16:20)
[2017-03-21] MEDS: BUDESONIDE 0.5 MG/2 ML NEBU NEB SCH (07:14)
[2017-03-21] MEDS: ALBUTEROL SULFATE 2.5 MG/ 0.5 ML NEBU NEB SCH ×3 (07:14→16:20)
[2017-03-21] MEDS ORDERED: AMLODIPINE 5 MG TABLET PO SCH (09:00)
[2017-03-21 09:02] LABS: HEMOGLOBIN 14.7 g/dL (10.9-14.3)
[2017-03-21 09:22] LABS: BASOPHILS % (AUTO) 0.1 % (0.0-2.0); BILIRUBIN,TOTAL 0.5 mg/dL (0.2-1.0); CREATININE 0.9 mg/dL (0.6-1.3); LYMPHOCYTES % (AUTO) 20.3 % (20.5-51.5); MAGNESIUM 2.1 mg/dL (1.8-2.4); MEAN CORPUSCULAR HEMOGLOBIN 27.9 uug (24.7-32.8); MEAN CORPUSCULAR HGB CONC 33 g/dL (32.3-35.6); MONOCYTES # (AUTO) 0.8 K/uL (2.0-10.0); MONOCYTES % (AUTO) 4.3 % (0.0-11.0); NEUTROPHILS % (AUTO) 75.3 % (38.5-71.5); PHOSPHOROUS 3.9 mg/dL (2.5-4.9); POTASSIUM 4.3 mmol/L (3.5-5.1); RED BLOOD CELL COUNT(AUTO) 5.28 MIL/uL (3.63-4.92); TOTAL PROTEIN, SERUM 6.7 g/dL (6.4-8.2)
[2017-03-21 09:23] LABS: HEMATOCRIT 44.4 % (31.2-41.9); PLATELET COUNT (AUTO) 462 K/uL (179-408)
[2017-03-21 09:28] LABS: BAND % (MANUAL) 1 % (0-10); LYMPHOCYTES % (MANUAL) 19 % (20-40); METAMYELOCYTES % 1 % (0-1); MONOCYTES % (MANUAL) 3 % (2-10); MYELOCYTES % 2 % (0-0); NEUTROPHILS % (MANUAL) 74 % (42-75)
[2017-03-21] MEDS ORDERED: AZITHROMYCIN 250 MG TABLET PO SCH (10:00)
[2017-03-21] MEDS: methylPREDNISolone SOD SUCC 40 MG/ML VIAL IV SCH (10:09)
[2017-03-21] MEDS: GUAIFENESIN LA 600 MG TABLET.SA PO SCH (10:09)
[2017-03-21] MEDS: MAGNESIUM OXIDE 400 MG TABLET PO SCH (10:10)
[2017-03-21] MEDS: CETIRIZINE HCL 10 MG TABLET PO SCH (10:10)
[2017-03-21] MEDS: FUROSEMIDE 20 MG TABLET PO SCH (10:10)
[2017-03-21] MEDS: FLUTICASONE/VILANTEROL 1 EACH BLST.W.DEV INH SCH (10:13)
[2017-03-21] MEDS: LOSARTAN POTASSIUM 50 MG TABLET PO SCH (10:20)
[2017-03-21] MEDS ORDERED: VANCOMYCIN IV 1,250 MG in IV DEXTROSE 5% 500 ML IV SCH (10:30)
[2017-03-21 11:01] VITALS: BP 137/77
[2017-03-21] MEDS: MAG HYDROX/AL HYDROX/SIMETH 30 ML LIQUID UDC PO PRN (12:54)
[2017-03-21] MEDS: INSULIN REGULAR, HUMAN 300 UNIT/3 ML VIAL SQ PRN (13:03)
[2017-03-21] MEDS ORDERED: HYDR25TA86 PO ×2 (13:10→13:13)
[2017-03-21] MEDS ORDERED: PRED10TA PO (13:10)
[2017-03-21] MEDS ORDERED: PRED20TA PO (13:10)
[2017-03-21] MEDS ORDERED: FURO20TA4 PO (13:10)
[2017-03-21] MEDS ORDERED: LOSA50TA3 PO (13:10)
[2017-03-21] MEDS ORDERED: AZIT250T6 PO (13:10)
[2017-03-21] MEDS ORDERED: HYDR473S4 PO (13:10)
[2017-03-21] MEDS ORDERED: ALBU2.5V13 NEB ×2 (13:10)
[2017-03-21] MEDS ORDERED: GUAI600T53 PO (13:10)
[2017-03-21] MEDS ORDERED: PRED-170 PO (13:10)
[2017-03-21] MEDS ORDERED: ACET325T53 PO (13:10)
[2017-03-21] MEDS ORDERED: MONT10TA22 PO (13:10)
[2017-03-21] MEDS ORDERED: CETI10TA14 PO (13:10)
[2017-03-21] MEDS ORDERED: AMLO5TAB2 PO (13:10)
[2017-03-21] MEDS ORDERED: IPRA0.2S6 NEB ×2 (13:10)
[2017-03-21] MEDS ORDERED: MAG30ORA PO (13:10)
[2017-03-21] MEDS ORDERED: BUDE180A INH (13:10)
[2017-03-21] MEDS ORDERED: LACT1CAP59 PO (13:15)
[2017-03-21] MEDS ORDERED: FAMO-132 PO (13:15)
[2017-03-21] MEDS ORDERED: FAMOTIDINE 20 MG TABLET PO SCH (13:15)
--- NOTE | 2017-03-21 14:53 | NUR ---
Clinical Pharmacy Note: Vancomycin Pharmacy to Dose Subjective: To contiue vancomycin in this 61 y/o female for "documented infection"(acute on chronic bacterial bronchitis, possible pneumonitis/pneumonia) - MD note mentions worsening cough despite other abx Objective: height 154cm 82kg BUN 22 Scr 0.9 Wbc 20 temp 98.5 trough 7.7 today at 0830 Assessment/Plan Changed regimen to 1250mg q12hrs for estimated torugh of 15.2, first dose today at 1030. Will order trough before 4th scheduled dose (not ordered yet). Will monitor renal function and dose per level if wereto become unstable. Will follow
--- NOTE | 2017-03-21 15:30 | NUR ---
PT. SITTING UP IN CHAIR FOR MEALS AND AMBULATING IN HALLWAY WITH GOOD TOLERANCE. MEDICATED FOR COUGH AND EPIGASTRIC BURNING AND STATED IMPROVEMENT AFTER MEDS GIVEN. ASSISTED PATIENT WITH SHOWER AND TOLERATED WELL AND STATED IMPROVED WELL BEING. VANCOMYCIN IV REMOVED AFTER PARTIAL INFUSION DUE TO COMPLAINT OF FLUSHING AND IV TENDERNESS. PHARMACY CALLED TO VERIFY RX. READINESS. DISCHARGE TEACHINGS BY Pranav AND SON ()SPOKE WITH KANDICE RUANO REGARDING DISCHARGE AND RX AND DISCHARGE NEEDS. 1630 PT AND SON GIVEN ALL DISCHARGE INSTRUCTIONS AND VERBALIZED UNDERSTANDING. PT. LEFT UNIT WITH ALL BELONGINGS ACCOMPANIED BY SON AND STAFF.
[2017-03-21] MEDS: HYDROCODONE BIT/HOMATROPINE 5 ML UDC PO PRN (15:32)
[2017-03-22] MEDS ORDERED: predniSONE 20 MG TABLET PO SCH (08:00)
[2017-03-23] MEDS ORDERED: predniSONE 20 MG TABLET PO SCH (08:00)
[2017-03-24] MEDS ORDERED: predniSONE 10 MG TABLET PO SCH (09:00)
[2017-03-25] MEDS ORDERED: predniSONE 5 MG TABLET PO SCH (09:00)
== END 2017-03-21 16:30 | disposition home or self-care (01) | DRG 139 ==
LOC: ER 21:13 → MED 03-13 02:15
PROVIDERS: ADMIT Nurse Practitioner Acute Care; ATTEND Family Medicine
DX: J18.9 Pneumonia, unspecified organism (principal); I50.33 Acute on chronic diastolic (congestive) heart failure; E44.0 Moderate protein-calorie malnutrition; J45.901 Unspecified asthma with (acute) exacerbation; E87.1 Hypo-osmolality and hyponatremia; D75.1 Secondary polycythemia; J20.8 Acute bronchitis due to other specified organisms; I11.0 Hypertensive heart disease with heart failure; J42 Unspecified chronic bronchitis; Z85.3 Personal history of malignant neoplasm of breast; Z92.3 Personal history of irradiation; K59.00 Constipation, unspecified; Z68.34 Body mass index [BMI] 34.0-34.9, adult; E66.9 Obesity, unspecified; J34.2 Deviated nasal septum; M47.9 Spondylosis, unspecified; R73.9 Hyperglycemia, unspecified; R93.2 Abnormal findings on diagnostic imaging of liver and biliary tract; R74.0 Nonspecific elevation of levels of transaminase and lactic acid dehydrogenase [LDH]; E78.5 Hyperlipidemia, unspecified; G43.909 Migraine, unspecified, not intractable, without status migrainosus; D72.829 Elevated white blood cell count, unspecified; T38.0X5A Adverse effect of glucocorticoids and synthetic analogues, initial encounter; Y92.230 Patient room in hospital as the place of occurrence of the external cause; A48.8 Other specified bacterial diseases
CPT/HCPCS: 36415; 70486; 71010; 71020; 71250; 83735; 84100; 84443; 85025; 85610; 87086; 87400; 93005; 93307; 94640; A4663; J0456; J1170; J1815; J1940; J1956; J2270; J2405; J2920; J2930; J3370; J3475; J3590; J7030; J7060; Q0144

== ENCOUNTER 2017-04-14 12:27 | Emergency (ER) | payer OTHER ==
[~2017-04-14] VITALS: Ht 154.9 cm; Wt 78.9 kg
[~2017-04-14 12:27] MED LIST changes: +ACET325T53 PO; +ALBU2.5V13 NEB; +AMLO5TAB2 PO; +AZIT250T6 PO; +BUDE180A INH; -CALC-1180 PO; +CETI10TA14 PO; +FAMO-132 PO; +FURO20TA4 PO; +GUAI600T53 PO; +HYDR25TA86 PO; +HYDR473S4 PO; +IPRA0.2S6 NEB; +LACT1CAP59 PO; -LOSA50TA21 PO; +LOSA50TA3 PO; +MAG30ORA PO; +MONT10TA22 PO; +PRED-170 PO; +PRED10TA PO; +PRED20TA PO; -PROP10TA10 PO; -RIBO100T6 PO
--- NOTE | 2017-04-14 13:07 | NUR ---
JHON WRAP APPLIED TO KNEE PER ORDER, AWAITING CANE TO BE BROUGHT FROM [employer]
--- NOTE | 2017-04-14 13:35 | NUR ---
Patient discharged to home in stable conditon. Written and verbal after care instructions given. Patient verbalizes understanding of instructions. Pt recieved cane, and ambulates well.
[2017-04-14 13:37] VITALS: BP 152/75
== END 2017-04-14 13:40 | disposition home or self-care (01) ==
LOC: ER 12:27
DX: S80.02XA Contusion of left knee, initial encounter (principal); G43.909 Migraine, unspecified, not intractable, without status migrainosus; E78.00 Pure hypercholesterolemia, unspecified; Z88.0 Allergy status to penicillin; I10 Essential (primary) hypertension; W17.89XA Other fall from one level to another, initial encounter; Y93.89 Activity, other specified; Y92.89 Other specified places as the place of occurrence of the external cause; Y99.8 Other external cause status
CPT/HCPCS: A4663

== ENCOUNTER 2017-10-08 10:19 | Inpatient (IN) | payer OTHER ==
[~2017-10-08] VITALS: Ht 154.9 cm; Wt 81.7 kg
[~2017-10-08 10:19] MED LIST changes: +AZIT250T13 PO; -AZIT250T6 PO
[2017-10-08] MEDS ORDERED: NITROGLYCERIN 0.4 MG/TAB BOTTLE SL ONE (10:32)
[2017-10-08] MEDS ORDERED: ASPI-605 PO (10:37)
[2017-10-08] MEDS ORDERED: RANI150T8 PO (10:37)
[2017-10-08] MEDS ORDERED: ENAL10TA PO (10:37)
[2017-10-08] MEDS ORDERED: SERT25TA PO (10:37)
[2017-10-08] MEDS ORDERED: GEMF600T3 PO (10:37)
[2017-10-08] MEDS ORDERED: IPRATROPIUM BROMIDE 0.5 MG/2.5 ML NEBU ONE (10:43)
[2017-10-08] MEDS ORDERED: ALBUTEROL SULFATE 2.5 MG/3 ML NEBU ONE (10:43)
[2017-10-08] MEDS ORDERED: ALBUTEROL SULFATE 2.5 MG/3 ML NEBU NEB ONE ×2 (10:45→11:30)
[2017-10-08] MEDS ORDERED: IPRATROPIUM BROMIDE 0.5 MG/2.5 ML NEBU NEB ONE (10:45)
[2017-10-08] MEDS ORDERED: ONDANSETRON 4 MG/2 ML VIAL ONE (10:56)
[2017-10-08] MEDS ORDERED: MORPHINE SULFATE 4 MG/1 ML DISP.SYRIN ONE ×2 (10:56→11:56)
[2017-10-08 10:59] LABS: BASOPHILS # (AUTO) 0.1 K/uL (0.0-8.0); BASOPHILS % (AUTO) 0.9 % (0.0-2.0); EOSINOPHILS # (AUTO) 0.2 K/uL (0.0-0.7); EOSINOPHILS % (AUTO) 2.9 % (0.0-7.0); HEMATOCRIT 38.1 % (31.2-41.9); LYMPHOCYTES # (AUTO) 2.1 K/uL (20.0-40.0); LYMPHOCYTES % (AUTO) 25.4 % (20.5-51.5); MEAN CORPUSCULAR HEMOGLOBIN 28.4 uug (24.7-32.8); MEAN CORPUSCULAR HGB CONC 34 g/dL (32.3-35.6); MEAN CORPUSCULAR VOLUME 83.2 fL (75.5-95.3); MONOCYTES # (AUTO) 0.5 K/uL (2.0-10.0); MONOCYTES % (AUTO) 5.9 % (0.0-11.0); NEUTROPHILS # (AUTO) 5.2 K/uL (1.8-8.9); NEUTROPHILS % (AUTO) 64.9 % (38.5-71.5); PLATELET COUNT (AUTO) 292 K/uL (179-408); RED BLOOD CELL COUNT(AUTO) 4.57 MIL/uL (3.63-4.92); WHITE BLOOD COUNT (AUTO) 8.1 K/uL (3.8-11.8)
[2017-10-08] MEDS ORDERED: BENZONATATE 100 MG CAPSULE PO ONE (11:00)
[2017-10-08] MEDS ORDERED: MORPHINE SULFATE 2 MG/1 ML DISP.SYRIN IV ONE (11:00)
[2017-10-08] MEDS ORDERED: ONDANSETRON 4 MG/2 ML VIAL IV ONE (11:00)
[2017-10-08 11:09] LABS: CREATININE 0.7 mg/dL (0.6-1.3); POTASSIUM 3.6 mmol/L (3.5-5.1)
[2017-10-08] MEDS ORDERED: BENZONATATE 100 MG CAPSULE ONE (11:10)
[2017-10-08] MEDS ORDERED: ALBUTEROL SULFATE 2.5 MG/ 0.5 ML NEBU ONE (11:17)
[2017-10-08 11:27] LABS: BILIRUBIN,DIRECT 0.1 mg/dL (0.0-0.2); BILIRUBIN,TOTAL 0.4 mg/dL (0.2-1.0); TOTAL PROTEIN, SERUM 7.2 g/dL (6.4-8.2)
[2017-10-08] MEDS ORDERED: MORPHINE SULFATE 4 MG/1 ML DISP.SYRIN IV ONE (11:45)
[2017-10-08] MEDS ORDERED: NORMAL SALINE FLUSH 10 ML DISP.SYRIN ONE (12:08)
[2017-10-08] MEDS ORDERED: IV NORMAL SALINE 0 ML ONE (12:08)
[2017-10-08] MEDS ORDERED: SWABABLE VALVE TRANSFER SET EA MC ONE (12:08)
[2017-10-08] MEDS ORDERED: IOHEXOL 350 100 ML INFUS..BTL ONE (12:08)
[2017-10-08] MEDS ORDERED: MORPHINE SULFATE 2 MG/1 ML DISP.SYRIN IV PRN (13:00)
[2017-10-08] MEDS ORDERED: NITROGLYCERIN 0.4 MG/TAB BOTTLE SL PRN (13:00)
[2017-10-08] MEDS ORDERED: ALBUTEROL SULFATE 2.5 MG/3 ML NEBU NEB PRN (13:00)
[2017-10-08] MEDS ORDERED: ONDANSETRON 4 MG/2 ML VIAL IV PRN (13:00)
[2017-10-08] MEDS ORDERED: IPRATROPIUM BROMIDE 0.5 MG/2.5 ML NEBU NEB PRN (13:00)
[2017-10-08 13:16] LABS: *BILIRUBIN,URIN NEGATIVE (NEGATIVE); *BLOOD, URINE NEGATIVE (NEGATIVE); *CLARITY,URINE CLEAR (CLEAR); *COLOR,URINE YELLOW (YELLOW); *KETONES,URINE NEGATIVE (NEGATIVE); *PROTEIN,URINE NEGATIVE (NEGATIVE); *UROBILINOGEN,URINE 0.2 E.U./dl (NORMAL); LEUKOCYTE ESTERASE ,URINE NEGATIVE (NEGATIVE); NITRITE, URINE NEGATIVE (NEGATIVE); UGLUCOSE NEGATIVE (NEGATIVE)
[2017-10-08 13:17] LABS: RBC,URINE 0-3 /HPF (0-3); WBC,URINE 0-3 /HPF (0-3)
[2017-10-08 13:18] LABS: BACTERIA,URINE FEW /HPF (NONE SEEN); SQUAMOUS EPITHELIAL CELL,UR FEW /HPF (NONE SEEN)
[2017-10-08 14:56] VITALS: BP 111/58
[2017-10-08] MEDS ORDERED: ZOLPIDEM 5 MG TABLET PO PRN (15:00)
[2017-10-08] MEDS ORDERED: GUAIFENESIN/CODEINE 5 ML LIQUID UDC PO PRN (15:00)
[2017-10-08] MEDS ORDERED: ENOXAPARIN SODIUM 30 MG/0.3 ML DISP.SYRIN SUBCUT SCH (15:15)
[2017-10-08] MEDS ORDERED: ASPIRIN 325 MG TABLET PO ONE (15:29)
[2017-10-08] MEDS ORDERED: MORPHINE SULFATE 4 MG/1 ML DISP.SYRIN IV PRN (15:45)
[2017-10-08] MEDS: IPRATROPIUM BROMIDE 0.5 MG/2.5 ML NEBU NEB SCH ×3 (16:39→22:56)
[2017-10-08] MEDS: ALBUTEROL SULFATE 2.5 MG/3 ML NEBU NEB SCH ×3 (16:39→22:56)
[2017-10-08] MEDS: FAMOTIDINE 20 MG TABLET PO SCH (16:50)
[2017-10-08] MEDS: ACETAMINOPHEN 325 MG TABLET PO PRN (16:51)
[2017-10-08] MEDS: GEMFIBROZIL 600 MG TABLET PO SCH (16:51)
[2017-10-08] MEDS: FLUTICASONE/VILANTEROL 1 EACH BLST.W.DEV INH SCH (18:28)
[2017-10-08] MEDS: MONTELUKAST SODIUM 10 MG TABLET PO SCH (18:28)
[2017-10-08 19:00] VITALS: BP 100/61
[2017-10-08] MEDS: TOPIRAMATE 25 MG TABLET PO SCH (20:44)
[2017-10-08] MEDS ORDERED: FLUTICASONE/SALMETEROL 250/50 INHALER INH SCH (21:00)
[2017-10-08] MEDS ORDERED: SIMVASTATIN 40 MG TABLET PO SCH (21:00)
[2017-10-08] MEDS ORDERED: ENOXAPARIN SODIUM 40 MG/0.4 ML DISP.SYRIN SQ SCH (21:00)
[2017-10-09] VITALS: BP 114/51
[2017-10-09] MEDS: ACETAMINOPHEN 325 MG TABLET PO PRN ×2 (03:24→11:54)
[2017-10-09] MEDS: IPRATROPIUM BROMIDE 0.5 MG/2.5 ML NEBU NEB SCH ×4 (03:28→15:43)
[2017-10-09] MEDS: ALBUTEROL SULFATE 2.5 MG/3 ML NEBU NEB SCH ×4 (03:28→15:43)
[2017-10-09 04:00] VITALS: BP 129/66
[2017-10-09 08:32] LABS: BASOPHILS # (AUTO) 0.1 K/uL (0.0-8.0); BASOPHILS % (AUTO) 0.8 % (0.0-2.0); EOSINOPHILS # (AUTO) 0.1 K/uL (0.0-0.7); EOSINOPHILS % (AUTO) 2.2 % (0.0-7.0); HEMATOCRIT 35.6 % (31.2-41.9); LYMPHOCYTES # (AUTO) 2.8 K/uL (20.0-40.0); LYMPHOCYTES % (AUTO) 41.5 % (20.5-51.5); MEAN CORPUSCULAR HEMOGLOBIN 28.1 uug (24.7-32.8); MEAN CORPUSCULAR HGB CONC 34 g/dL (32.3-35.6); MEAN CORPUSCULAR VOLUME 83.1 fL (75.5-95.3); MONOCYTES # (AUTO) 0.5 K/uL (2.0-10.0); MONOCYTES % (AUTO) 7.4 % (0.0-11.0); NEUTROPHILS # (AUTO) 3.2 K/uL (1.8-8.9); NEUTROPHILS % (AUTO) 48.1 % (38.5-71.5); PLATELET COUNT (AUTO) 249 K/uL (179-408); RED BLOOD CELL COUNT(AUTO) 4.28 MIL/uL (3.63-4.92); WHITE BLOOD COUNT (AUTO) 6.7 K/uL (3.8-11.8)
[2017-10-09] MEDS: FAMOTIDINE 20 MG TABLET PO SCH ×2 (08:47→18:15)
[2017-10-09] MEDS: FLUTICASONE/VILANTEROL 1 EACH BLST.W.DEV INH SCH (08:48)
[2017-10-09] MEDS: GEMFIBROZIL 600 MG TABLET PO SCH (08:48)
[2017-10-09] MEDS: TOPIRAMATE 25 MG TABLET PO SCH (08:48)
[2017-10-09 08:52] LABS: BILIRUBIN,TOTAL 0.5 mg/dL (0.2-1.0); CREATININE 0.7 mg/dL (0.6-1.3); MAGNESIUM 1.8 mg/dL (1.8-2.4); PHOSPHOROUS 4.1 mg/dL (2.5-4.9); POTASSIUM 3.6 mmol/L (3.5-5.1); TOTAL PROTEIN, SERUM 6.5 g/dL (6.4-8.2)
[2017-10-09] MEDS ORDERED: FLUOXETINE HCL 20 MG CAPSULE PO SCH (09:00)
[2017-10-09] MEDS ORDERED: ASPIRIN EC 81 MG TABLET.DR PO SCH (09:00)
[2017-10-09] MEDS ORDERED: FUROSEMIDE 20 MG TABLET PO SCH (09:00)
[2017-10-09] MEDS ORDERED: CETIRIZINE HCL 10 MG TABLET PO SCH (09:00)
[2017-10-09] MEDS ORDERED: Medication Not On Formulary EA (Sertraline Hcl (Zoloft) 1 TAB) PO SCH (09:00)
[2017-10-09] MEDS ORDERED: SERTRALINE HCL 50 MG TABLET PO SCH (09:00)
[2017-10-09] MEDS ORDERED: MAGNESIUM OXIDE 400 MG TABLET PO SCH (09:00)
[2017-10-09 09:02] LABS: THYROID STIMULATING HORMONE 1.85 mIU/mL (0.358-3.740)
[2017-10-09] MEDS ORDERED: INSULIN REGULAR, HUMAN 300 UNIT/3 ML VIAL SQ PRN (10:15)
[2017-10-09] MEDS ORDERED: OMEGA-3 FATTY ACIDS/FISH OIL CAPSULE PO SCH (10:15)
[2017-10-09] MEDS ORDERED: DEXTROSE 50% 50 ML DISP.SYRIN IV PRN (10:15)
[2017-10-09 10:47] VITALS: BP 131/69
[2017-10-09] MEDS: BLOOD SUGAR DIAGNOSTIC 1 EACH STRIP VI SCH ×2 (11:57→16:30)
[2017-10-09 14:56] VITALS: BP 130/60
[2017-10-09] MEDS ORDERED: OMEG1CAP PO (15:09)
[2017-10-09] MEDS ORDERED: DOCU100C36 PO (15:09)
[2017-10-09] MEDS ORDERED: ATOR40TA PO (15:09)
[2017-10-09] MEDS: MONTELUKAST SODIUM 10 MG TABLET PO SCH (18:15)
[2017-10-09] MEDS ORDERED: DOCUSATE SODIUM 100 MG CAPSULE PO SCH (21:00)
[2017-10-09] MEDS ORDERED: ATORVASTATIN 40 MG TABLET PO SCH (21:00)
== END 2017-10-09 18:20 | disposition home or self-care (01) | DRG 144 ==
LOC: ER 10:19 → TELE 14:00
PROVIDERS: ADMIT Nurse Practitioner Acute Care; ATTEND Internal Medicine
DX: J20.9 Acute bronchitis, unspecified (principal); I11.0 Hypertensive heart disease with heart failure; I50.32 Chronic diastolic (congestive) heart failure; E66.9 Obesity, unspecified; G43.909 Migraine, unspecified, not intractable, without status migrainosus; Z85.3 Personal history of malignant neoplasm of breast; Z68.34 Body mass index [BMI] 34.0-34.9, adult; Z87.01 Personal history of pneumonia (recurrent); J45.909 Unspecified asthma, uncomplicated; E78.5 Hyperlipidemia, unspecified; Z80.9 Family history of malignant neoplasm, unspecified; E11.9 Type 2 diabetes mellitus without complications; Z79.82 Long term (current) use of aspirin; F32.9 Major depressive disorder, single episode, unspecified; R19.4 Change in bowel habit; Z79.899 Other long term (current) drug therapy
CPT/HCPCS: 36415; 70030-TC; 71045; 78579; 83735; 84100; 84443; 85025; 87040; 87086; 93005; 93307; 94640; 94664; A4663; A9540; A9567; J1650; J1815; J2270; J2405; J3490; J3590; Q9967

== ENCOUNTER 2017-11-02 23:33 | Inpatient (IN) | payer OTHER ==
[~2017-11-02] VITALS: Ht 154.9 cm; Wt 79.4 kg
[~2017-11-02 23:33] MED LIST changes: +ASPI-605 PO; +ATOR40TA PO; -AZIT250T13 PO; +DOCU100C36 PO; +ENAL10TA PO; -FLUO20CA36 PO; -GUAI600T53 PO; -LACT1CAP59 PO; -LOSA50TA3 PO; -MAG30ORA PO; -NAPR500T6 PO; +OMEG1CAP PO; -PRED-170 PO; -PRED10TA PO; -PRED20TA PO; +RANI150T8 PO; +SERT25TA PO; -SIMV40TA5 PO
[2017-11-03] MEDS ORDERED: IPRATROPIUM BROMIDE 0.5 MG/2.5 ML NEBU NEB ONE
[2017-11-03] MEDS ORDERED: ALBUTEROL SULFATE 2.5 MG/3 ML NEBU NEB ONE
[2017-11-03] MEDS ORDERED: ALBUTEROL SULFATE 2.5 MG/3 ML NEBU ONE (00:11)
[2017-11-03] MEDS ORDERED: IPRATROPIUM BROMIDE 0.5 MG/2.5 ML NEBU ONE (00:12)
[2017-11-03] MEDS ORDERED: IV NORMAL SALINE 500 ML BAG IV ONE (00:30)
[2017-11-03 00:52] LABS: BASOPHILS # (AUTO) 0.1 K/uL (0.0-8.0); BASOPHILS % (AUTO) 0.8 % (0.0-2.0); EOSINOPHILS # (AUTO) 0.2 K/uL (0.0-0.7); EOSINOPHILS % (AUTO) 3.3 % (0.0-7.0); HEMATOCRIT 35.7 % (31.2-41.9); LYMPHOCYTES # (AUTO) 4.1 K/uL (20.0-40.0); LYMPHOCYTES % (AUTO) 60.7 % (20.5-51.5); MEAN CORPUSCULAR HEMOGLOBIN 27.9 uug (24.7-32.8); MEAN CORPUSCULAR HGB CONC 34 g/dL (32.3-35.6); MEAN CORPUSCULAR VOLUME 83.2 fL (75.5-95.3); MONOCYTES # (AUTO) 0.6 K/uL (2.0-10.0); MONOCYTES % (AUTO) 8.2 % (0.0-11.0); NEUTROPHILS # (AUTO) 1.8 K/uL (1.8-8.9); PLATELET COUNT (AUTO) 227 K/uL (179-408); WHITE BLOOD COUNT (AUTO) 6.8 K/uL (3.8-11.8)
[2017-11-03] MEDS ORDERED: predniSONE 20 MG TABLET ONE (00:56)
[2017-11-03 01:00] LABS: CREATININE 0.7 mg/dL (0.6-1.3); POTASSIUM 4.2 mmol/L (3.5-5.1)
[2017-11-03] MEDS ORDERED: predniSONE 20 MG TABLET PO ONE (01:00)
[2017-11-03 01:16] LABS: BILIRUBIN,DIRECT 0.1 mg/dL (0.0-0.2); BILIRUBIN,TOTAL 0.2 mg/dL (0.2-1.0); TOTAL PROTEIN, SERUM 6.8 g/dL (6.4-8.2)
[2017-11-03] MEDS ORDERED: Z GUARD REMEDY PASTE 57 GM TUBE TOP PRN (01:30)
[2017-11-03] MEDS ORDERED: ONDANSETRON 4 MG/2 ML VIAL IV PRN (01:30)
[2017-11-03] MEDS: ALBUTEROL SULFATE 2.5 MG/3 ML NEBU NEB SCH ×6 (01:30→20:14)
[2017-11-03] MEDS ORDERED: hydrALAZINE HCL 25 MG TABLET PO PRN (01:30)
[2017-11-03 01:55] VITALS: BP 126/51
[2017-11-03] MEDS: HYDROCODONE/APAP 5-325MG TABLET PO PRN ×2 (02:25→21:22)
[2017-11-03 03:51] VITALS: BP 99/58
[2017-11-03] MEDS: IPRATROPIUM BROMIDE 0.5 MG/2.5 ML NEBU NEB PRN ×3 (04:02→11:06)
[2017-11-03] MEDS: GUAIFENESIN/DEXTROMETHORPHAN 5 ML UDC PO PRN ×3 (04:50→21:21)
[2017-11-03] MEDS: methylPREDNISolone SOD SUCC 40 MG/ML VIAL IV SCH ×3 (05:00→21:21)
[2017-11-03] MEDS: CETIRIZINE HCL 10 MG TABLET PO SCH (08:43)
[2017-11-03] MEDS: ASPIRIN EC 81 MG TABLET.DR PO SCH (08:43)
[2017-11-03] MEDS: DOCUSATE SODIUM 100 MG CAPSULE PO SCH ×2 (08:43→21:21)
[2017-11-03] MEDS: FUROSEMIDE 20 MG TABLET PO SCH (08:43)
[2017-11-03] MEDS: AMLODIPINE 5 MG TABLET PO SCH ×2 (08:44→21:00)
[2017-11-03] MEDS: ENALAPRIL 10 MG TABLET PO SCH (08:44)
[2017-11-03] MEDS: TOPIRAMATE 25 MG TABLET PO SCH ×2 (08:47→21:21)
[2017-11-03 11:30] VITALS: BP 134/64
[2017-11-03] MEDS: SERTRALINE HCL 50 MG TABLET PO SCH (11:39)
[2017-11-03] MEDS ORDERED: ALBUTEROL SULFATE 1.25 MG/3 ML NEBU NEB PRN (12:45)
[2017-11-03] MEDS: IPRATROPIUM BROMIDE 0.5 MG/2.5 ML NEBU NEB SCH ×2 (15:00→20:14)
[2017-11-03 15:40] VITALS: BP 131/66
[2017-11-03] MEDS: FLUTICASONE PROP NASAL SPRAY 16 GM BOTTLE NS SCH (16:23)
[2017-11-03] MEDS: MONTELUKAST SODIUM 10 MG TABLET PO SCH (17:30)
[2017-11-03 20:16] VITALS: BP 126/60
[2017-11-03] MEDS: ATORVASTATIN 40 MG TABLET PO SCH (21:21)
[2017-11-04] MEDS: ZOLPIDEM 5 MG TABLET PO PRN ×2 (01:28→22:12)
[2017-11-04 04:42] VITALS: BP 122/65
[2017-11-04] MEDS: methylPREDNISolone SOD SUCC 40 MG/ML VIAL IV SCH ×3 (05:04→21:35)
[2017-11-04 06:12] LABS: BASOPHILS % (AUTO) 0.1 % (0.0-2.0); HEMATOCRIT 34.9 % (31.2-41.9); HEMOGLOBIN 11.8 g/dL (10.9-14.3); LYMPHOCYTES # (AUTO) 1.8 K/uL (20.0-40.0); LYMPHOCYTES % (AUTO) 16.2 % (20.5-51.5); MEAN CORPUSCULAR HEMOGLOBIN 27.9 uug (24.7-32.8); MEAN CORPUSCULAR HGB CONC 34 g/dL (32.3-35.6); MEAN CORPUSCULAR VOLUME 82.2 fL (75.5-95.3); MONOCYTES # (AUTO) 0.4 K/uL (2.0-10.0); NEUTROPHILS # (AUTO) 8.7 K/uL (1.8-8.9); NEUTROPHILS % (AUTO) 79.7 % (38.5-71.5); PLATELET COUNT (AUTO) 250 K/uL (179-408); RED BLOOD CELL COUNT(AUTO) 4.25 MIL/uL (3.63-4.92); WHITE BLOOD COUNT (AUTO) 10.9 K/uL (3.8-11.8)
[2017-11-04 06:34] LABS: CREATININE 0.8 mg/dL (0.6-1.3); MAGNESIUM 1.9 mg/dL (1.8-2.4); PHOSPHOROUS 4.1 mg/dL (2.5-4.9); POTASSIUM 3.8 mmol/L (3.5-5.1)
[2017-11-04] MEDS: IPRATROPIUM BROMIDE 0.5 MG/2.5 ML NEBU NEB SCH ×4 (07:11→19:17)
[2017-11-04] MEDS: ALBUTEROL SULFATE 2.5 MG/3 ML NEBU NEB SCH ×4 (07:13→19:17)
[2017-11-04] MEDS: DOCUSATE SODIUM 100 MG CAPSULE PO SCH ×2 (08:33→20:10)
[2017-11-04] MEDS: ASPIRIN EC 81 MG TABLET.DR PO SCH (08:34)
[2017-11-04] MEDS: FUROSEMIDE 20 MG TABLET PO SCH (08:34)
[2017-11-04] MEDS: TOPIRAMATE 25 MG TABLET PO SCH ×2 (08:34→20:10)
[2017-11-04] MEDS: CETIRIZINE HCL 10 MG TABLET PO SCH (08:34)
[2017-11-04] MEDS: SERTRALINE HCL 50 MG TABLET PO SCH (08:34)
[2017-11-04] MEDS: AMLODIPINE 5 MG TABLET PO SCH ×2 (08:35→20:31)
[2017-11-04] MEDS: FLUTICASONE PROP NASAL SPRAY 16 GM BOTTLE NS SCH ×2 (08:36→17:21)
[2017-11-04] MEDS: ENALAPRIL 10 MG TABLET PO SCH (08:36)
[2017-11-04 08:51] LABS: ABG BASE EXCESS -1.7 mmol/L; ABG HCO3 22.5 mmol/L; ABG PCO2 36.8 mmHg (35.0-45.0); ABG PH 7.405 (7.350-7.450); ABG PO2 79.1 mmHg (75.0-100.0); ABG SITE RIGHT RADIAL; ABG TOTAL HEMOGLOBIN 13.3 G/dL (12.0-16.0); COHb 1.1 % (0.5-1.5); MetHb 0.3 % (0.0-1.5); O2Hb 93.9 % (94.0-97.0); VENT MODE ROOM AIR
[2017-11-04] MEDS: HYDROCODONE BIT/HOMATROPINE 5 ML UDC PO PRN ×2 (09:31→20:11)
[2017-11-04] MEDS: ACETAMINOPHEN 325 MG TABLET PO PRN (10:29)
[2017-11-04] MEDS ORDERED: BENZOCAINE/MENTH/CETYLPYRD LOZENGE MM PRN (10:30)
[2017-11-04 11:57] VITALS: BP 124/52
[2017-11-04 15:25] VITALS: BP 127/59
[2017-11-04] MEDS: MONTELUKAST SODIUM 10 MG TABLET PO SCH (17:19)
[2017-11-04] MEDS: OXYMETAZOLINE NASAL 0.05% 15 ML SPRAY NS PRN (17:19)
[2017-11-04] MEDS: MUPIROCIN 2% OINT 22 GM TUBE NS SCH (20:10)
[2017-11-04] MEDS: ATORVASTATIN 40 MG TABLET PO SCH (20:10)
[2017-11-04] MEDS: MAGNESIUM HYDROXIDE 30 ML LIQUID UDC PO PRN (20:31)
[2017-11-04 21:34] VITALS: BP 152/84
[2017-11-05] MEDS: methylPREDNISolone SOD SUCC 40 MG/ML VIAL IV SCH ×3 (05:04→22:21)
[2017-11-05 06:02] VITALS: BP 124/67
[2017-11-05] MEDS: ALBUTEROL SULFATE 2.5 MG/3 ML NEBU NEB SCH ×4 (07:35→20:16)
[2017-11-05] MEDS: IPRATROPIUM BROMIDE 0.5 MG/2.5 ML NEBU NEB SCH ×4 (07:35→20:15)
[2017-11-05] MEDS: FUROSEMIDE 20 MG TABLET PO SCH (08:06)
[2017-11-05] MEDS: ASPIRIN EC 81 MG TABLET.DR PO SCH (08:06)
[2017-11-05] MEDS: TOPIRAMATE 25 MG TABLET PO SCH ×2 (08:07→20:20)
[2017-11-05] MEDS: DOCUSATE SODIUM 100 MG CAPSULE PO SCH ×2 (08:07→20:20)
[2017-11-05] MEDS: METFORMIN HCL 500 MG TABLET PO SCH ×2 (08:07→18:00)
[2017-11-05] MEDS: SERTRALINE HCL 50 MG TABLET PO SCH (08:08)
[2017-11-05] MEDS: CETIRIZINE HCL 10 MG TABLET PO SCH (08:08)
[2017-11-05] MEDS: GUAIFENESIN/DEXTROMETHORPHAN 5 ML UDC PO PRN (08:08)
[2017-11-05] MEDS: FLUTICASONE PROP NASAL SPRAY 16 GM BOTTLE NS SCH ×2 (08:13→16:28)
[2017-11-05] MEDS: MUPIROCIN 2% OINT 22 GM TUBE NS SCH ×2 (08:14→20:20)
[2017-11-05] MEDS: AMLODIPINE 5 MG TABLET PO SCH ×2 (08:44→20:20)
[2017-11-05] MEDS: ENALAPRIL 10 MG TABLET PO SCH (11:09)
[2017-11-05 11:11] VITALS: BP 175/80
[2017-11-05] MEDS: OXYMETAZOLINE NASAL 0.05% 15 ML SPRAY NS PRN (11:12)
[2017-11-05] MEDS: FAMOTIDINE 20 MG TABLET PO SCH ×2 (11:45→16:18)
[2017-11-05] MEDS ORDERED: CLONIDINE HCL 0.1 MG TABLET PO PRN (12:00)
[2017-11-05 12:12] VITALS: BP 160/76
[2017-11-05] MEDS: HYDROCODONE BIT/HOMATROPINE 5 ML UDC PO PRN (12:24)
[2017-11-05] MEDS: MAGNESIUM HYDROXIDE 30 ML LIQUID UDC PO PRN (12:24)
[2017-11-05] MEDS ORDERED: MAGNESIUM CITRATE 296 ML BOTTLE PO ONE (13:45)
[2017-11-05] MEDS: LEVOFLOXACIN 750MG/D5W 750 MG in PREMIXED 1 EACH IV SCH (14:16)
[2017-11-05 16:07] VITALS: BP 105/50
[2017-11-05] MEDS: MONTELUKAST SODIUM 10 MG TABLET PO SCH (18:00)
[2017-11-05 18:28] VITALS: BP 134/79
[2017-11-05 19:00] VITALS: BP 111/54
[2017-11-05] MEDS: ATORVASTATIN 40 MG TABLET PO SCH (20:20)
[2017-11-05] MEDS: ZOLPIDEM 5 MG TABLET PO PRN (22:22)
[2017-11-06 04:00] VITALS: BP 129/64
[2017-11-06] MEDS: methylPREDNISolone SOD SUCC 40 MG/ML VIAL IV SCH ×2 (05:08→13:56)
[2017-11-06] MEDS: GUAIFENESIN/DEXTROMETHORPHAN 5 ML UDC PO PRN ×2 (05:14→11:36)
[2017-11-06] MEDS: ALBUTEROL SULFATE 2.5 MG/3 ML NEBU NEB SCH ×4 (07:36→19:30)
[2017-11-06] MEDS: IPRATROPIUM BROMIDE 0.5 MG/2.5 ML NEBU NEB SCH ×4 (07:36→19:30)
[2017-11-06] MEDS: SERTRALINE HCL 50 MG TABLET PO SCH (08:31)
[2017-11-06] MEDS: METFORMIN HCL 500 MG TABLET PO SCH ×2 (08:31→17:00)
[2017-11-06] MEDS: TOPIRAMATE 25 MG TABLET PO SCH (08:31)
[2017-11-06] MEDS: DOCUSATE SODIUM 100 MG CAPSULE PO SCH (08:32)
[2017-11-06] MEDS: FUROSEMIDE 20 MG TABLET PO SCH (08:32)
[2017-11-06] MEDS: FAMOTIDINE 20 MG TABLET PO SCH ×2 (08:32→17:00)
[2017-11-06] MEDS: CETIRIZINE HCL 10 MG TABLET PO SCH (08:32)
[2017-11-06] MEDS: ASPIRIN EC 81 MG TABLET.DR PO SCH (08:32)
[2017-11-06] MEDS: AMLODIPINE 5 MG TABLET PO SCH (08:34)
[2017-11-06] MEDS: MUPIROCIN 2% OINT 22 GM TUBE NS SCH (08:36)
[2017-11-06] MEDS: FLUTICASONE PROP NASAL SPRAY 16 GM BOTTLE NS SCH ×2 (08:38→16:58)
[2017-11-06] MEDS: ENALAPRIL 10 MG TABLET PO SCH (09:00)
[2017-11-06 11:28] VITALS: BP 134/70
[2017-11-06] MEDS: OXYMETAZOLINE NASAL 0.05% 15 ML SPRAY NS PRN (13:58)
[2017-11-06] MEDS: LEVOFLOXACIN 750MG/D5W 750 MG in PREMIXED 1 EACH IV SCH ×2 (15:04→15:40)
[2017-11-06] MEDS: ACETAMINOPHEN 325 MG TABLET PO PRN (15:25)
[2017-11-06 15:32] VITALS: BP 117/64
[2017-11-06] MEDS: MONTELUKAST SODIUM 10 MG TABLET PO SCH (17:00)
[2017-11-06] MEDS: HYDROCODONE BIT/HOMATROPINE 5 ML UDC PO PRN (17:00)
[2017-11-06] MEDS ORDERED: METF500T6 PO (18:17)
[2017-11-06] MEDS ORDERED: FAMO20TA8 PO (18:17)
[2017-11-06] MEDS ORDERED: METH4TAB3 PO (18:17)
[2017-11-06] MEDS ORDERED: LEVO500T2 PO (18:17)
== END 2017-11-06 19:00 | disposition home health service (06) | DRG 140 ==
LOC: ER 23:36 → TELE 11-03 01:10 → MED 11-03 13:00
PROVIDERS: ADMIT Internal Medicine; ATTEND Internal Medicine
DX: J44.0 Chronic obstructive pulmonary disease with (acute) lower respiratory infection (principal); I11.0 Hypertensive heart disease with heart failure; J45.901 Unspecified asthma with (acute) exacerbation; I50.32 Chronic diastolic (congestive) heart failure; E11.65 Type 2 diabetes mellitus with hyperglycemia; K21.9 Gastro-esophageal reflux disease without esophagitis; J20.8 Acute bronchitis due to other specified organisms; F32.9 Major depressive disorder, single episode, unspecified; E66.9 Obesity, unspecified; Z68.33 Body mass index [BMI] 33.0-33.9, adult; Z85.3 Personal history of malignant neoplasm of breast; Z92.3 Personal history of irradiation; E78.5 Hyperlipidemia, unspecified; Z88.1 Allergy status to other antibiotic agents; G43.909 Migraine, unspecified, not intractable, without status migrainosus; F41.9 Anxiety disorder, unspecified; J34.2 Deviated nasal septum; K59.09 Other constipation; Z80.9 Family history of malignant neoplasm, unspecified; Z79.82 Long term (current) use of aspirin; Z79.899 Other long term (current) drug therapy; Z87.898 Personal history of other specified conditions; J01.80 Other acute sinusitis; Z88.0 Allergy status to penicillin; Z91.041 Radiographic dye allergy status; Z87.01 Personal history of pneumonia (recurrent); E78.00 Pure hypercholesterolemia, unspecified
CPT/HCPCS: 36415; 36600; 70030-TC; 70486; 71045; 82785; 83735; 84100; 85025; 87040; 87070; 93005; 94640; 94664; A4663; J1956; J2920; J3535; J3590; J7030; J7040; J7512

== ENCOUNTER 2017-11-10 13:48 | Inpatient (IN) | payer OTHER ==
[~2017-11-10] VITALS: Ht 154.9 cm; Wt 78.5 kg
[~2017-11-10 13:48] MED LIST changes: -FAMO-132 PO; +FAMO20TA8 PO; -FURO20TA4 PO; -HYDR25TA86 PO; +LEVO500T2 PO; +METF500T6 PO; +METH4TAB3 PO; -RANI150T8 PO
[2017-11-10] MEDS ORDERED: ONDANSETRON 4 MG/2 ML VIAL IV ONE (15:15)
[2017-11-10] MEDS ORDERED: IV NORMAL SALINE 1000 ML BAG IV ONE (15:15)
[2017-11-10 15:28] LABS: BASOPHILS # (AUTO) 0.1 K/uL (0.0-8.0); BASOPHILS % (AUTO) 0.5 % (0.0-2.0); EOSINOPHILS # (AUTO) 0.1 K/uL (0.0-0.7); EOSINOPHILS % (AUTO) 0.4 % (0.0-7.0); HEMATOCRIT 39.5 % (31.2-41.9); HEMOGLOBIN 13.3 g/dL (10.9-14.3); LYMPHOCYTES # (AUTO) 3.5 K/uL (20.0-40.0); LYMPHOCYTES % (AUTO) 30.2 % (20.5-51.5); MEAN CORPUSCULAR HEMOGLOBIN 27.5 uug (24.7-32.8); MEAN CORPUSCULAR HGB CONC 34 g/dL (32.3-35.6); MEAN CORPUSCULAR VOLUME 81.6 fL (75.5-95.3); MONOCYTES # (AUTO) 0.8 K/uL (2.0-10.0); MONOCYTES % (AUTO) 6.7 % (0.0-11.0); NEUTROPHILS # (AUTO) 7.1 K/uL (1.8-8.9); NEUTROPHILS % (AUTO) 62.2 % (38.5-71.5); PLATELET COUNT (AUTO) 326 K/uL (179-408); RED BLOOD CELL COUNT(AUTO) 4.84 MIL/uL (3.63-4.92); WHITE BLOOD COUNT (AUTO) 11.5 K/uL (3.8-11.8)
[2017-11-10] MEDS ORDERED: ONDANSETRON 4 MG/2 ML VIAL ONE (15:28)
[2017-11-10 15:42] LABS: CREATININE 0.7 mg/dL (0.6-1.3); POTASSIUM 4.2 mmol/L (3.5-5.1)
[2017-11-10 15:48] LABS: BILIRUBIN,DIRECT 0.2 mg/dL (0.0-0.2); BILIRUBIN,TOTAL 0.6 mg/dL (0.2-1.0); TOTAL PROTEIN, SERUM 6.6 g/dL (6.4-8.2)
[2017-11-10] MEDS ORDERED: IV NS 1000 ML 1,000 ML IV PRN (19:12)
[2017-11-10] MEDS ORDERED: MAGNESIUM HYDROXIDE 30 ML LIQUID UDC PO PRN (19:15)
[2017-11-10] MEDS ORDERED: IPRATROPIUM BROMIDE 0.5 MG/2.5 ML NEBU NEB PRN (19:15)
[2017-11-10] MEDS ORDERED: MORPHINE SULFATE 2 MG/1 ML DISP.SYRIN IV PRN (19:15)
[2017-11-10] MEDS ORDERED: ALBUTEROL SULFATE 2.5 MG/ 0.5 ML NEBU NEB PRN (19:15)
[2017-11-10] MEDS ORDERED: Z GUARD REMEDY PASTE 57 GM TUBE TOP PRN (19:15)
[2017-11-10] MEDS ORDERED: HYDROCODONE/APAP 5-325MG TABLET PO PRN (19:15)
[2017-11-10] MEDS ORDERED: ONDANSETRON 4 MG/2 ML VIAL IV PRN (19:15)
[2017-11-10] MEDS ORDERED: ACETAMINOPHEN 325 MG TABLET PO PRN ×2 (19:15)
[2017-11-10 21:00] VITALS: BP 114/67
[2017-11-10] MEDS: DOCUSATE SODIUM 100 MG CAPSULE PO SCH (22:00)
[2017-11-10] MEDS ORDERED: ATORVASTATIN 40 MG TABLET PO SCH (22:00)
[2017-11-10] MEDS: TOPIRAMATE 25 MG TABLET PO SCH (22:52)
[2017-11-10] MEDS: AMLODIPINE 5 MG TABLET PO SCH (22:52)
[2017-11-11] VITALS: BP 104/53
[2017-11-11 04:00] VITALS: BP 120/60
[2017-11-11 06:22] LABS: BASOPHILS % (AUTO) 0.4 % (0.0-2.0); EOSINOPHILS # (AUTO) 0.1 K/uL (0.0-0.7); EOSINOPHILS % (AUTO) 0.9 % (0.0-7.0); HEMATOCRIT 39.5 % (31.2-41.9); HEMOGLOBIN 13.2 g/dL (10.9-14.3); LYMPHOCYTES # (AUTO) 4.4 K/uL (20.0-40.0); LYMPHOCYTES % (AUTO) 43.1 % (20.5-51.5); MEAN CORPUSCULAR HEMOGLOBIN 27.6 uug (24.7-32.8); MEAN CORPUSCULAR HGB CONC 33 g/dL (32.3-35.6); MEAN CORPUSCULAR VOLUME 82.7 fL (75.5-95.3); MONOCYTES # (AUTO) 0.8 K/uL (2.0-10.0); MONOCYTES % (AUTO) 7.5 % (0.0-11.0); NEUTROPHILS # (AUTO) 4.9 K/uL (1.8-8.9); NEUTROPHILS % (AUTO) 48.1 % (38.5-71.5); PLATELET COUNT (AUTO) 310 K/uL (179-408); RED BLOOD CELL COUNT(AUTO) 4.77 MIL/uL (3.63-4.92); WHITE BLOOD COUNT (AUTO) 10.3 K/uL (3.8-11.8)
[2017-11-11 06:27] LABS: CREATININE 0.8 mg/dL (0.6-1.3); MAGNESIUM 1.9 mg/dL (1.8-2.4); PHOSPHOROUS 4.3 mg/dL (2.5-4.9); POTASSIUM 3.2 mmol/L (3.5-5.1)
[2017-11-11 08:01] VITALS: BP 113/67
[2017-11-11] MEDS: TOPIRAMATE 25 MG TABLET PO SCH (08:09)
[2017-11-11] MEDS: FAMOTIDINE 20 MG TABLET PO SCH ×2 (08:09→17:09)
[2017-11-11] MEDS: DOCUSATE SODIUM 100 MG CAPSULE PO SCH ×2 (08:09→09:08)
[2017-11-11] MEDS: AMLODIPINE 5 MG TABLET PO SCH (08:09)
[2017-11-11] MEDS ORDERED: Medication Not On Formulary EA (Sertraline Hcl (Zoloft) 1 TAB) PO SCH (09:00)
[2017-11-11] MEDS ORDERED: PANTOPRAZOLE SODIUM 40 MG VIAL IV SCH (09:00)
[2017-11-11] MEDS ORDERED: MAGNESIUM OXIDE 400 MG TABLET PO SCH (09:00)
[2017-11-11] MEDS ORDERED: ENALAPRIL 10 MG TABLET PO SCH (09:00)
[2017-11-11] MEDS ORDERED: SERTRALINE HCL 50 MG TABLET PO SCH (09:00)
[2017-11-11] MEDS ORDERED: CETIRIZINE HCL 10 MG TABLET PO SCH (09:00)
[2017-11-11] MEDS ORDERED: POTASSIUM CHLORIDE 50 ML IV SCH (09:15)
[2017-11-11 09:20] LABS: *BILIRUBIN,URIN NEGATIVE (NEGATIVE); *BLOOD, URINE NEGATIVE (NEGATIVE); *CLARITY,URINE CLEAR (CLEAR); *COLOR,URINE YELLOW (YELLOW); *KETONES,URINE NEGATIVE (NEGATIVE); *PROTEIN,URINE NEGATIVE (NEGATIVE); *UROBILINOGEN,URINE 0.2 E.U./dl (NORMAL); LEUKOCYTE ESTERASE ,URINE NEGATIVE (NEGATIVE); NITRITE, URINE NEGATIVE (NEGATIVE); UGLUCOSE NEGATIVE (NEGATIVE)
[2017-11-11 09:27] LABS: BACTERIA,URINE FEW /HPF (NONE SEEN); RBC,URINE 0-3 /HPF (0-3); SQUAMOUS EPITHELIAL CELL,UR FEW /HPF (NONE SEEN); WBC,URINE 0-3 /HPF (0-3)
[2017-11-11] MEDS ORDERED: POTASSIUM CHLORIDE 20 MEQ TAB.PRT.SR PO ONE (09:45)
[2017-11-11] MEDS ORDERED: PANT40TA2 PO (11:12)
[2017-11-11 11:51] VITALS: BP 132/80
[2017-11-11 15:35] VITALS: BP 90/51
[2017-11-11] MEDS ORDERED: MONTELUKAST SODIUM 10 MG TABLET PO SCH (18:00)
== END 2017-11-11 18:05 | disposition home health service (06) | DRG 422 ==
LOC: ER 13:48 → TELE 20:46
PROVIDERS: ADMIT Internal Medicine; ATTEND Internal Medicine
DX: E87.1 Hypo-osmolality and hyponatremia (principal); E86.1 Hypovolemia; I10 Essential (primary) hypertension; F32.9 Major depressive disorder, single episode, unspecified; E11.9 Type 2 diabetes mellitus without complications; J45.909 Unspecified asthma, uncomplicated; E66.9 Obesity, unspecified; F41.9 Anxiety disorder, unspecified; K52.9 Noninfective gastroenteritis and colitis, unspecified; Z85.3 Personal history of malignant neoplasm of breast; Z79.84 Long term (current) use of oral hypoglycemic drugs; K21.9 Gastro-esophageal reflux disease without esophagitis; Z68.32 Body mass index [BMI] 32.0-32.9, adult
CPT/HCPCS: 36415; 70030-TC; 83690; 83735; 84100; 85025; 85730; 93005; A4663; C9113; J2405; J7030

== ENCOUNTER 2018-07-08 19:07 | Emergency (ER) | payer MEDICAID, OTHER ==
[~2018-07-08] VITALS: Ht 152.4 cm; Wt 78.0 kg
[~2018-07-08 19:07] MED LIST changes: -AMLO5TAB2 PO; +AMLO5TAB9 PO; -FAMO20TA8 PO; +METF-440 PO; -METF500T6 PO; +PANT40TA2 PO
--- NOTE | 2018-07-08 19:42 | NUR ---
Dr. Knight at bedside for MSE.
--- NOTE | 2018-07-08 19:55 | NUR ---
Xray at bedside.
--- NOTE | 2018-07-08 20:09 | NUR ---
Medication Reconciliation Note: Patient is very usure of her prescriptions, states that she only takes 2-3 medications but when prompted states she takes the majority of the medications in the reconciliation. Patient further states she was started on a new medication for cholesterol but cannot recall the name.
--- NOTE | 2018-07-08 20:48 | NUR ---
Patient discharged to home in stable conditon. Written and verbal after care instructions given. Patient verbalizes understanding of instructions. Patient ambulated out of ER with steady gait, no acute signs of distress, VSS, all belongings taken.
[2018-07-08 20:49] VITALS: BP 150/87
== END 2018-07-08 20:50 | disposition home or self-care (01) ==
LOC: ER 19:07
DX: S70.12XA Contusion of left thigh, initial encounter (principal); M25.511 Pain in right shoulder; I10 Essential (primary) hypertension; J45.909 Unspecified asthma, uncomplicated; Z88.1 Allergy status to other antibiotic agents; Z88.8 Allergy status to other drugs, medicaments and biological substances; Z79.2 Long term (current) use of antibiotics; Z79.899 Other long term (current) drug therapy; Z79.82 Long term (current) use of aspirin; Z79.891 Long term (current) use of opiate analgesic; W18.30XA Fall on same level, unspecified, initial encounter; Y93.89 Activity, other specified; Y92.89 Other specified places as the place of occurrence of the external cause; Y99.8 Other external cause status
CPT/HCPCS: 73030; 73080; 73551; A4663

== ENCOUNTER 2019-01-08 11:49 | Inpatient (IN) | payer MEDICAID, OTHER ==
[~2019-01-08] VITALS: Ht 154.9 cm; Wt 80.9 kg
[2019-01-08] MEDS ORDERED: AZITHROMYCIN 250 MG TABLET PO ONE (12:30)
[2019-01-08] MEDS ORDERED: CEFTRIAXONE 1 G in IV DEXTROSE 5% 50 ML IV ONE (12:30)
[2019-01-08] MEDS ORDERED: IV NORMAL SALINE 1000 ML BAG IV ONE (12:30)
[2019-01-08] MEDS ORDERED: DEXAMETHASONE SOD PHOSPHATE 4 MG INJ IV ONE (12:30)
[2019-01-08] MEDS ORDERED: ONDANSETRON 4 MG/2 ML VIAL ONE (12:37)
[2019-01-08] MEDS ORDERED: MORPHINE SULFATE 4 MG/1 ML DISP.SYRIN ONE (12:37)
[2019-01-08] MEDS ORDERED: DEXAMETHASONE SOD PHOSPHATE 10 MG INJ ONE (12:37)
[2019-01-08] MEDS ORDERED: AZITHROMYCIN 250 MG TABLET ONE (12:37)
[2019-01-08] MEDS ORDERED: CEFTRIAXONE /D5W 50ML IVPB **ER PYXIS IV ONE (12:38)
[2019-01-08 12:45] LABS: BASOPHILS # (AUTO) 0.1 K/uL (0.0-8.0); BASOPHILS % (AUTO) 0.7 % (0.0-2.0); EOSINOPHILS # (AUTO) 0.1 K/uL (0.0-0.7); EOSINOPHILS % (AUTO) 0.8 % (0.0-7.0); HEMATOCRIT 34.9 % (31.2-41.9); HEMOGLOBIN 11.5 g/dL (10.9-14.3); LYMPHOCYTES # (AUTO) 1.5 K/uL (20.0-40.0); LYMPHOCYTES % (AUTO) 14.6 % (20.5-51.5); MEAN CORPUSCULAR HEMOGLOBIN 26.6 uug (24.7-32.8); MEAN CORPUSCULAR HGB CONC 33 g/dL (32.3-35.6); MEAN CORPUSCULAR VOLUME 80.8 fL (75.5-95.3); MONOCYTES # (AUTO) 0.7 K/uL (2.0-10.0); MONOCYTES % (AUTO) 6.6 % (0.0-11.0); NEUTROPHILS # (AUTO) 8.2 K/uL (1.8-8.9); NEUTROPHILS % (AUTO) 77.3 % (38.5-71.5); PLATELET COUNT (AUTO) 271 K/uL (179-408); RED BLOOD CELL COUNT(AUTO) 4.32 MIL/uL (3.63-4.92); WHITE BLOOD COUNT (AUTO) 10.6 K/uL (3.8-11.8)
[2019-01-08] MEDS ORDERED: ONDANSETRON 4 MG/2 ML VIAL IV ONE (12:45)
[2019-01-08] MEDS ORDERED: MORPHINE SULFATE 4 MG/1 ML DISP.SYRIN IV ONE (12:45)
[2019-01-08 12:54] LABS: CREATININE 0.6 mg/dL (0.6-1.3); POTASSIUM 3.8 mmol/L (3.5-5.1)
[2019-01-08 13:06] LABS: BILIRUBIN,DIRECT 0.1 mg/dL (0.0-0.2); BILIRUBIN,TOTAL 0.2 mg/dL (0.2-1.0); TOTAL PROTEIN, SERUM 7.1 g/dL (6.4-8.2)
[2019-01-08] MEDS ORDERED: SODI650T PO (13:12)
[2019-01-08] MEDS ORDERED: CLON0.1T PO (13:12)
[2019-01-08] MEDS ORDERED: diphenhydrAMINE 50 MG/1 ML VIAL IV ONE (13:15)
[2019-01-08] MEDS ORDERED: IPRATROPIUM BROMIDE 0.5 MG/2.5 ML NEBU NEB ONE (13:15)
[2019-01-08] MEDS ORDERED: ALBUTEROL SULFATE 2.5 MG/3 ML NEBU NEB ONE (13:15)
[2019-01-08] MEDS ORDERED: diphenhydrAMINE 50 MG/1 ML VIAL ONE (13:19)
[2019-01-08] MEDS ORDERED: ALBUTEROL SULFATE 2.5 MG/3 ML NEBU ONE (13:23)
[2019-01-08] MEDS ORDERED: IPRATROPIUM BROMIDE 0.5 MG/2.5 ML NEBU ONE (13:23)
[2019-01-08] MEDS ORDERED: IBUPROFEN 800 MG TABLET PO ONE (13:30)
[2019-01-08] MEDS ORDERED: MAG HYDROX/AL HYDROX/SIMETH 30 ML LIQUID UDC PO ONE (13:45)
[2019-01-08] MEDS ORDERED: MAG HYDROX/AL HYDROX/SIMETH 30 ML LIQUID UDC ONE (13:56)
[2019-01-08] MEDS ORDERED: ENOXAPARIN SODIUM 40 MG/0.4 ML DISP.SYRIN SQ SCH (15:15)
[2019-01-08] MEDS ORDERED: MORPHINE SULFATE 2 MG/1 ML DISP.SYRIN IV PRN (15:15)
[2019-01-08] MEDS ORDERED: ACETAMINOPHEN 325 MG TABLET PO PRN (15:15)
[2019-01-08] MEDS ORDERED: MAGNESIUM HYDROXIDE 30 ML LIQUID UDC PO PRN (15:15)
[2019-01-08] MEDS ORDERED: CLONIDINE HCL 0.1 MG TABLET PO PRN (15:15)
[2019-01-08] MEDS ORDERED: PANTOPRAZOLE SODIUM 40 MG VIAL IV SCH (15:15)
[2019-01-08] MEDS ORDERED: Z GUARD REMEDY PASTE 57 GM TUBE TOP PRN (15:15)
[2019-01-08] MEDS ORDERED: ONDANSETRON 4 MG/2 ML VIAL IV PRN (15:15)
[2019-01-08 15:20] VITALS: BP 113/57
[2019-01-08 16:34] LABS: *BILIRUBIN,URIN NEGATIVE (NEGATIVE); *BLOOD, URINE NEGATIVE (NEGATIVE); *CLARITY,URINE CLEAR (CLEAR); *COLOR,URINE LIGHT YELLOW (YELLOW); *KETONES,URINE NEGATIVE (NEGATIVE); *UROBILINOGEN,URINE 0.2 E.U./dl (NORMAL); LEUKOCYTE ESTERASE ,URINE NEGATIVE (NEGATIVE); NITRITE, URINE NEGATIVE (NEGATIVE); PH,URINE 6.5 (5.0-8.0); UGLUCOSE NEGATIVE (NEGATIVE)
[2019-01-08] MEDS: MONTELUKAST SODIUM 10 MG TABLET PO SCH (17:43)
[2019-01-08] MEDS: ALBUTEROL SULFATE 1.25 MG/3 ML NEBU NEB SCH (19:16)
[2019-01-08] MEDS: IPRATROPIUM BROMIDE 0.5 MG/2.5 ML NEBU NEB SCH (19:16)
[2019-01-08 20:25] VITALS: BP 116/61
[2019-01-08] MEDS: OMEGA-3 FATTY ACIDS/FISH OIL CAPSULE PO SCH (20:46)
[2019-01-08] MEDS: AMLODIPINE 5 MG TABLET PO SCH (20:46)
[2019-01-08] MEDS: ENOXAPARIN SODIUM 40 MG/0.4 ML DISP.SYRIN SQ SCH (20:48)
[2019-01-08] MEDS: ATORVASTATIN 40 MG TABLET PO SCH (21:44)
[2019-01-08] MEDS: methylPREDNISolone SOD SUCC 40 MG/ML VIAL IV SCH (22:28)
[2019-01-08] MEDS: HYDROCODONE/APAP 5-325MG TABLET PO PRN (22:42)
[2019-01-09 00:29] VITALS: BP 112/59
[2019-01-09] MEDS: IPRATROPIUM BROMIDE 0.5 MG/2.5 ML NEBU NEB SCH ×4 (01:10→20:05)
[2019-01-09] MEDS: ALBUTEROL SULFATE 1.25 MG/3 ML NEBU NEB SCH ×4 (01:10→20:05)
[2019-01-09 04:02] VITALS: BP 103/61
[2019-01-09 05:47] LABS: BASOPHILS % (AUTO) 0.1 % (0.0-2.0); HEMATOCRIT 33.5 % (31.2-41.9); HEMOGLOBIN 11.2 g/dL (10.9-14.3); LYMPHOCYTES # (AUTO) 0.9 K/uL (20.0-40.0); LYMPHOCYTES % (AUTO) 6.9 % (20.5-51.5); MEAN CORPUSCULAR HEMOGLOBIN 27.4 uug (24.7-32.8); MEAN CORPUSCULAR HGB CONC 33 g/dL (32.3-35.6); MEAN CORPUSCULAR VOLUME 81.9 fL (75.5-95.3); MONOCYTES # (AUTO) 0.4 K/uL (2.0-10.0); MONOCYTES % (AUTO) 2.8 % (0.0-11.0); NEUTROPHILS # (AUTO) 12.3 K/uL (1.8-8.9); NEUTROPHILS % (AUTO) 90.2 % (38.5-71.5); PLATELET COUNT (AUTO) 277 K/uL (179-408); RED BLOOD CELL COUNT(AUTO) 4.09 MIL/uL (3.63-4.92); WHITE BLOOD COUNT (AUTO) 13.6 K/uL (3.8-11.8)
[2019-01-09 05:59] LABS: CREATININE 0.7 mg/dL (0.6-1.3); MAGNESIUM 1.8 mg/dL (1.8-2.4); PHOSPHOROUS 3.4 mg/dL (2.5-4.9)
[2019-01-09] MEDS: methylPREDNISolone SOD SUCC 40 MG/ML VIAL IV SCH ×5 (06:04→23:18)
[2019-01-09] MEDS: PANTOPRAZOLE SODIUM 40 MG TABLET.DR PO SCH (06:04)
[2019-01-09 06:10] LABS: THYROID STIMULATING HORMONE 1.449 mIU/mL (0.358-3.740)
[2019-01-09 07:30] LABS: ABG BASE EXCESS -0.5 mmol/L; ABG HCO3 23.4 mmol/L; ABG PH 7.431 (7.350-7.450); ABG PO2 68.2 mmHg (75.0-100.0); ABG SITE RIGHT RADIAL; ABG TOTAL HEMOGLOBIN 12.4 G/dL (12.0-16.0); COHb 0.8 % (0.5-1.5); MetHb 0.2 % (0.0-1.5); O2Hb 92.3 % (94.0-97.0); VENT MODE Room Air
[2019-01-09] MEDS: ASPIRIN EC 81 MG TABLET.DR PO SCH (09:22)
[2019-01-09] MEDS: ENALAPRIL 10 MG TABLET PO SCH (09:22)
[2019-01-09] MEDS: OMEGA-3 FATTY ACIDS/FISH OIL CAPSULE PO SCH ×2 (09:22→20:54)
[2019-01-09] MEDS: AMLODIPINE 5 MG TABLET PO SCH ×2 (09:23→20:55)
[2019-01-09] MEDS ORDERED: CEFTRIAXONE 1 G in IV DEXTROSE 5% 50 ML IV SCH (10:00)
[2019-01-09 11:53] VITALS: BP 115/55
[2019-01-09] MEDS ORDERED: AZITHROMYCIN IV 500 MG in IV DEXTROSE 5% 250 ML IV SCH (13:00)
[2019-01-09] MEDS: LEVOFLOXACIN 500 MG TABLET PO SCH (14:34)
[2019-01-09 15:15] VITALS: BP 113/50
[2019-01-09] MEDS: MONTELUKAST SODIUM 10 MG TABLET PO SCH (17:45)
[2019-01-09] MEDS: MAGNESIUM CITRATE 296 ML BOTTLE PO ONE ×2 (19:00→20:54)
[2019-01-09 20:51] VITALS: BP 118/53
[2019-01-09] MEDS: DOCUSATE SODIUM 100 MG CAPSULE PO SCH ×2 (20:54→21:00)
[2019-01-09] MEDS: ATORVASTATIN 40 MG TABLET PO SCH (20:54)
[2019-01-09] MEDS: ENOXAPARIN SODIUM 40 MG/0.4 ML DISP.SYRIN SQ SCH (20:57)
[2019-01-09] MEDS: HYDROCODONE/APAP 5-325MG TABLET PO PRN (23:10)
[2019-01-10] VITALS: BP 115/60
[2019-01-10] MEDS: ALBUTEROL SULFATE 1.25 MG/3 ML NEBU NEB SCH ×4 (00:43→19:34)
[2019-01-10] MEDS: IPRATROPIUM BROMIDE 0.5 MG/2.5 ML NEBU NEB SCH ×4 (00:43→19:34)
[2019-01-10 04:00] VITALS: BP 122/62
[2019-01-10] MEDS: methylPREDNISolone SOD SUCC 40 MG/ML VIAL IV SCH ×3 (06:00→15:09)
[2019-01-10] MEDS: PANTOPRAZOLE SODIUM 40 MG TABLET.DR PO SCH (06:04)
[2019-01-10] MEDS: ASPIRIN EC 81 MG TABLET.DR PO SCH (08:41)
[2019-01-10] MEDS: ENALAPRIL 10 MG TABLET PO SCH (08:41)
[2019-01-10] MEDS: DOCUSATE SODIUM 100 MG CAPSULE PO SCH ×2 (08:41→20:14)
[2019-01-10] MEDS: OMEGA-3 FATTY ACIDS/FISH OIL CAPSULE PO SCH ×2 (08:41→20:15)
[2019-01-10] MEDS: AMLODIPINE 5 MG TABLET PO SCH ×2 (08:42→20:15)
[2019-01-10] MEDS ORDERED: FUROSEMIDE 20 MG/2 ML VIAL IV ONE (08:45)
[2019-01-10] MEDS ORDERED: MAGNESIUM CITRATE 296 ML BOTTLE PO ONE (09:00)
[2019-01-10] MEDS: GUAIFENESIN/DEXTROMETHORPHAN 5 ML UDC PO PRN ×2 (09:34→17:34)
[2019-01-10 11:16] VITALS: BP 138/79
[2019-01-10 11:29] LABS: BASOPHILS % (AUTO) 0.2 % (0.0-2.0); HEMOGLOBIN 11.5 g/dL (10.9-14.3)
[2019-01-10 11:35] LABS: CREATININE 0.9 mg/dL (0.6-1.3); POTASSIUM 4.2 mmol/L (3.5-5.1)
[2019-01-10 11:41] LABS: HEMATOCRIT 35.8 % (31.2-41.9); LYMPHOCYTES # (AUTO) 1.5 K/uL (20.0-40.0); LYMPHOCYTES % (AUTO) 9.5 % (20.5-51.5); MEAN CORPUSCULAR HEMOGLOBIN 26.3 uug (24.7-32.8); MEAN CORPUSCULAR HGB CONC 32 g/dL (32.3-35.6); MEAN CORPUSCULAR VOLUME 82.3 fL (75.5-95.3); MONOCYTES # (AUTO) 0.7 K/uL (2.0-10.0); MONOCYTES % (AUTO) 4.4 % (0.0-11.0); NEUTROPHILS # (AUTO) 13.9 K/uL (1.8-8.9); NEUTROPHILS % (AUTO) 85.9 % (38.5-71.5); RED BLOOD CELL COUNT(AUTO) 4.35 MIL/uL (3.63-4.92); WHITE BLOOD COUNT (AUTO) 16.2 K/uL (3.8-11.8)
[2019-01-10 11:42] LABS: PLATELET COUNT (AUTO) 355 K/uL (179-408)
[2019-01-10] MEDS: LEVOFLOXACIN 500 MG TABLET PO SCH (15:08)
[2019-01-10 15:14] VITALS: BP 133/66
[2019-01-10] MEDS: MONTELUKAST SODIUM 10 MG TABLET PO SCH (17:34)
[2019-01-10 20:02] VITALS: BP 131/62
[2019-01-10] MEDS: ATORVASTATIN 40 MG TABLET PO SCH (20:15)
[2019-01-10] MEDS: ENOXAPARIN SODIUM 40 MG/0.4 ML DISP.SYRIN SQ SCH (20:16)
[2019-01-11] MEDS: IPRATROPIUM BROMIDE 0.5 MG/2.5 ML NEBU NEB SCH ×4 (01:25→22:31)
[2019-01-11] MEDS: ALBUTEROL SULFATE 1.25 MG/3 ML NEBU NEB SCH ×4 (01:26→22:31)
[2019-01-11] MEDS: methylPREDNISolone SOD SUCC 40 MG/ML VIAL IV SCH ×2 (05:35→21:39)
[2019-01-11] MEDS: PANTOPRAZOLE SODIUM 40 MG TABLET.DR PO SCH (06:18)
[2019-01-11 06:22] VITALS: BP 144/65
[2019-01-11 06:38] LABS: BASOPHILS % (AUTO) 0.2 % (0.0-2.0); HEMATOCRIT 32.6 % (31.2-41.9); HEMOGLOBIN 10.4 g/dL (10.9-14.3); LYMPHOCYTES # (AUTO) 1.4 K/uL (20.0-40.0); LYMPHOCYTES % (AUTO) 12.4 % (20.5-51.5); MEAN CORPUSCULAR HGB CONC 32 g/dL (32.3-35.6); MEAN CORPUSCULAR VOLUME 81.5 fL (75.5-95.3); MONOCYTES # (AUTO) 0.5 K/uL (2.0-10.0); MONOCYTES % (AUTO) 4.2 % (0.0-11.0); NEUTROPHILS # (AUTO) 9.3 K/uL (1.8-8.9); NEUTROPHILS % (AUTO) 83.2 % (38.5-71.5); PLATELET COUNT (AUTO) 349 K/uL (179-408); WHITE BLOOD COUNT (AUTO) 11.2 K/uL (3.8-11.8)
[2019-01-11 06:39] LABS: CREATININE 0.8 mg/dL (0.6-1.3); MAGNESIUM 2.3 mg/dL (1.8-2.4); PHOSPHOROUS 2.4 mg/dL (2.5-4.9); POTASSIUM 4.4 mmol/L (3.5-5.1)
[2019-01-11] MEDS ORDERED: NEUTRA PHOS PACKET PO ONE (08:30)
[2019-01-11] MEDS: DOCUSATE SODIUM 100 MG CAPSULE PO SCH ×2 (09:18→21:38)
[2019-01-11] MEDS: AMLODIPINE 5 MG TABLET PO SCH ×2 (09:19→21:38)
[2019-01-11] MEDS: OMEGA-3 FATTY ACIDS/FISH OIL CAPSULE PO SCH ×2 (09:19→21:38)
[2019-01-11] MEDS: ASPIRIN EC 81 MG TABLET.DR PO SCH (09:19)
[2019-01-11] MEDS: GUAIFENESIN/DEXTROMETHORPHAN 5 ML UDC PO PRN ×2 (09:20→15:12)
[2019-01-11] MEDS: ENALAPRIL 10 MG TABLET PO SCH (09:20)
[2019-01-11] MEDS: ESCITALOPRAM OXALATE 10 MG TABLET PO SCH (09:23)
[2019-01-11 11:14] VITALS: BP 122/63
[2019-01-11] MEDS: LEVOFLOXACIN 500 MG TABLET PO SCH (15:12)
[2019-01-11 15:31] VITALS: BP 108/52
[2019-01-11] MEDS ORDERED: FUROSEMIDE 20 MG/2 ML VIAL IV ONE (17:15)
[2019-01-11] MEDS: MONTELUKAST SODIUM 10 MG TABLET PO SCH (17:26)
[2019-01-11 20:16] VITALS: BP 120/48
[2019-01-11] MEDS ORDERED: ZOLPIDEM 5 MG TABLET PO SCH (21:00)
[2019-01-11] MEDS: ATORVASTATIN 40 MG TABLET PO SCH (21:38)
[2019-01-11] MEDS: ENOXAPARIN SODIUM 40 MG/0.4 ML DISP.SYRIN SQ SCH (21:40)
[2019-01-12] MEDS: ALBUTEROL SULFATE 1.25 MG/3 ML NEBU NEB SCH ×3 (01:30→13:48)
[2019-01-12] MEDS: IPRATROPIUM BROMIDE 0.5 MG/2.5 ML NEBU NEB SCH ×3 (01:30→13:48)
[2019-01-12 05:31] VITALS: BP_SYST 115; BP_SYST 137; BP_DIAS 54; BP_DIAS 70
[2019-01-12] MEDS: PANTOPRAZOLE SODIUM 40 MG TABLET.DR PO SCH (06:21)
[2019-01-12] MEDS: GUAIFENESIN/DEXTROMETHORPHAN 5 ML UDC PO PRN ×2 (06:30→14:39)
[2019-01-12 06:44] LABS: BASOPHILS % (AUTO) 0.1 % (0.0-2.0); HEMOGLOBIN 11.7 g/dL (10.9-14.3); LYMPHOCYTES # (AUTO) 1.5 K/uL (20.0-40.0); LYMPHOCYTES % (AUTO) 16.9 % (20.5-51.5); MEAN CORPUSCULAR HEMOGLOBIN 27.5 uug (24.7-32.8); MEAN CORPUSCULAR HGB CONC 33 g/dL (32.3-35.6); MEAN CORPUSCULAR VOLUME 82.7 fL (75.5-95.3); MONOCYTES # (AUTO) 0.3 K/uL (2.0-10.0); MONOCYTES % (AUTO) 3.8 % (0.0-11.0); NEUTROPHILS # (AUTO) 6.8 K/uL (1.8-8.9); NEUTROPHILS % (AUTO) 79.2 % (38.5-71.5); PLATELET COUNT (AUTO) 357 K/uL (179-408); RED BLOOD CELL COUNT(AUTO) 4.23 MIL/uL (3.63-4.92); WHITE BLOOD COUNT (AUTO) 8.6 K/uL (3.8-11.8)
[2019-01-12 06:54] LABS: CREATININE 0.7 mg/dL (0.6-1.3); PHOSPHOROUS 3.7 mg/dL (2.5-4.9); POTASSIUM 4.9 mmol/L (3.5-5.1)
[2019-01-12] MEDS: ASPIRIN EC 81 MG TABLET.DR PO SCH (08:37)
[2019-01-12] MEDS: DOCUSATE SODIUM 100 MG CAPSULE PO SCH (08:37)
[2019-01-12] MEDS: methylPREDNISolone SOD SUCC 40 MG/ML VIAL IV SCH (08:37)
[2019-01-12] MEDS: OMEGA-3 FATTY ACIDS/FISH OIL CAPSULE PO SCH (08:37)
[2019-01-12] MEDS: ESCITALOPRAM OXALATE 10 MG TABLET PO SCH (08:38)
[2019-01-12] MEDS: ENALAPRIL 10 MG TABLET PO SCH (08:40)
[2019-01-12] MEDS: AMLODIPINE 5 MG TABLET PO SCH (08:51)
[2019-01-12 11:49] VITALS: BP 123/59
[2019-01-12] MEDS ORDERED: METH4TAB3 PO (13:53)
[2019-01-12] MEDS ORDERED: LEVO500T2 PO (13:53)
[2019-01-12] MEDS ORDERED: MAGNESIUM CITRATE 296 ML BOTTLE PO ONE (14:00)
[2019-01-12] MEDS ORDERED: BISACODYL 5 MG TABLET.DR PO ONE (14:00)
[2019-01-12] MEDS: LEVOFLOXACIN 500 MG TABLET PO SCH (14:40)
[2019-01-12 16:12] VITALS: BP 125/71
[2019-01-12] MEDS: MONTELUKAST SODIUM 10 MG TABLET PO SCH (18:10)
[2019-01-12] MEDS ORDERED: methylPREDNISolone SOD SUCC 40 MG/ML VIAL IV SCH (21:00)
== END 2019-01-12 19:00 | disposition home or self-care (01) | DRG 193 ==
LOC: ER 11:49 → TELE3 14:47 → MEDSURG3 01-10 08:40
PROVIDERS: ADMIT Nurse Practitioner Acute Care; ATTEND Nurse Practitioner Acute Care
DX: J15.9 Unspecified bacterial pneumonia (principal); I50.31 Acute diastolic (congestive) heart failure; J44.1 Chronic obstructive pulmonary disease with (acute) exacerbation; J44.0 Chronic obstructive pulmonary disease with (acute) lower respiratory infection; C50.912 Malignant neoplasm of unspecified site of left female breast; J20.9 Acute bronchitis, unspecified; E66.9 Obesity, unspecified; R07.89 Other chest pain; D72.829 Elevated white blood cell count, unspecified; T38.0X5A Adverse effect of glucocorticoids and synthetic analogues, initial encounter; Y92.230 Patient room in hospital as the place of occurrence of the external cause; Z91.041 Radiographic dye allergy status; Z85.3 Personal history of malignant neoplasm of breast; Z68.33 Body mass index [BMI] 33.0-33.9, adult; Z85.820 Personal history of malignant melanoma of skin; K59.00 Constipation, unspecified; Z90.12 Acquired absence of left breast and nipple; Z92.21 Personal history of antineoplastic chemotherapy; E83.39 Other disorders of phosphorus metabolism; E11.9 Type 2 diabetes mellitus without complications; Z79.84 Long term (current) use of oral hypoglycemic drugs; Z86.59 Personal history of other mental and behavioral disorders; I11.0 Hypertensive heart disease with heart failure; I70.0 Atherosclerosis of aorta; Z79.82 Long term (current) use of aspirin; Z83.3 Family history of diabetes mellitus; Z79.899 Other long term (current) drug therapy
CPT/HCPCS: 36415; 36600; 70030-TC; 71045; 74018; 76642-TC; 82785; 83605; 83690; 83735; 84100; 84443; 85025; 85730; 87040; 87086; 93005; 93307; 94640; A4663; C9113; G0378; J0456; J0696; J1100; J1200; J1650; J1940; J2270; J2405; J2920; J3590; J7030; J7060; Q0144

== ENCOUNTER 2019-03-05 22:17 | Emergency (ER) | payer MEDICAID, OTHER ==
[~2019-03-05] VITALS: Ht 154.9 cm; Wt 78.0 kg
[~2019-03-05 22:17] MED LIST changes: -ALBU2.5V13 NEB; -CETI10TA14 PO; +CLON0.1T PO; -DOCU100C36 PO; -HYDR473S4 PO; -IPRA0.2S6 NEB; -MAGN400T30 PO; -METF-440 PO; -SERT25TA PO; +SODI650T PO; -TOPI25TA PO
--- NOTE | 2019-03-05 22:42 | NUR ---
Pt arrived at the ER via wheelchair with c/o sharp right inguinal pain radiating to leg and lower back x 3 days. Pt took advil 6 hours ago. Patient AAOX4. No cardiovascular concern. Respiratory even and unlabored. No /GI concern. Hx Breast CA with Left mastectomy 9 months ago.
--- NOTE | 2019-03-05 22:45 | NUR ---
Dr. Knight on bedside for MSE.
--- NOTE | 2019-03-05 22:50 | NUR ---
Telephone call to [employer] [facility] and request for US per Dr. Eugene barraza.
[2019-03-05] MEDS ORDERED: KETOROLAC TROMETHAMINE 30 MG INJ ONE (23:55)
[2019-03-06] MEDS ORDERED: KETOROLAC TROMETHAMINE 30 MG INJ IM ONE
--- NOTE | 2019-03-06 00:01 | NUR ---
Patient discharged to home in stable conditon. Written and verbal after care instructions given. Patient verbalizes understanding of instructions. Pt ambulated out of the ER with steady gait. All belongings with pt.
[2019-03-06 00:02] VITALS: BP 140/90
== END 2019-03-06 00:02 | disposition home or self-care (01) ==
LOC: ER 22:18
DX: M79.604 Pain in right leg (principal); E78.00 Pure hypercholesterolemia, unspecified; J44.9 Chronic obstructive pulmonary disease, unspecified; Z88.1 Allergy status to other antibiotic agents; Z88.8 Allergy status to other drugs, medicaments and biological substances; Z79.82 Long term (current) use of aspirin; Z79.2 Long term (current) use of antibiotics; Z79.899 Other long term (current) drug therapy
CPT/HCPCS: 93971; 96372; 99284; J1885; A4663

== ENCOUNTER 2019-12-22 02:18 | Emergency (ER) | payer MEDICARE, OTHER ==
[~2019-12-22] VITALS: Ht 157.5 cm; Wt 81.6 kg
--- NOTE | 2019-12-22 02:40 | NUR ---
DR. GÓMEZ AT BEDSIDE FOR MSE.
[2019-12-22] MEDS ORDERED: IV NORMAL SALINE 1000 ML BAG IV ONE (03:00)
[2019-12-22 03:54] LABS: BASOPHILS # (AUTO) 0.1 K/uL (0.0-8.0); EOSINOPHILS # (AUTO) 0.2 K/uL (0.0-0.7); HEMATOCRIT 36.7 % (31.2-41.9); HEMOGLOBIN 11.9 g/dL (10.9-14.3); LYMPHOCYTES % (AUTO) 38.8 % (20.5-51.5); MEAN CORPUSCULAR HEMOGLOBIN 26.5 uug (24.7-32.8); MEAN CORPUSCULAR HGB CONC 32 g/dL (32.3-35.6); MEAN CORPUSCULAR VOLUME 81.8 fL (75.5-95.3); MONOCYTES # (AUTO) 0.5 K/uL (2.0-10.0); MONOCYTES % (AUTO) 6.2 % (0.0-11.0); PLATELET COUNT (AUTO) 341 K/uL (179-408); RED BLOOD CELL COUNT(AUTO) 4.49 MIL/uL (3.63-4.92); WHITE BLOOD COUNT (AUTO) 7.8 K/uL (3.8-11.8)
[2019-12-22 03:56] LABS: BILIRUBIN,DIRECT 0.1 mg/dL (0.0-0.2); BILIRUBIN,TOTAL 0.4 mg/dL (0.2-1.0); CREATININE 0.8 mg/dL (0.6-1.3); POTASSIUM 4.2 mmol/L (3.5-5.1); TOTAL PROTEIN, SERUM 7.1 g/dL (6.4-8.2)
[2019-12-22] MEDS ORDERED: ACETAMINOPHEN ES 500 MG TABLET ONE (04:05)
[2019-12-22 04:12] LABS: *BILIRUBIN,URIN NEGATIVE (NEGATIVE); *BLOOD, URINE NEGATIVE (NEGATIVE); *CLARITY,URINE CLEAR (CLEAR); *COLOR,URINE YELLOW (YELLOW); *KETONES,URINE NEGATIVE (NEGATIVE); *UROBILINOGEN,URINE 0.2 E.U./dl (NORMAL); LEUKOCYTE ESTERASE ,URINE TRACE (NEGATIVE); NITRITE, URINE NEGATIVE (NEGATIVE); PH,URINE 6.5 (5.0-8.0); UGLUCOSE NEGATIVE (NEGATIVE)
[2019-12-22] MEDS ORDERED: ACETAMINOPHEN ES 500 MG TABLET PO ONE (04:15)
[2019-12-22] MEDS ORDERED: DEXAMETHASONE SOD PHOSPHATE 10 MG INJ ONE (04:28)
[2019-12-22] MEDS ORDERED: DEXAMETHASONE SOD PHOSPHATE 4 MG INJ IV ONE (04:30)
[2019-12-22 04:32] LABS: BACTERIA,URINE NONE SEEN /HPF (NONE SEEN); RBC,URINE 0-3 /HPF (0-3); SQUAMOUS EPITHELIAL CELL,UR FEW /HPF (NONE SEEN)
[2019-12-22 05:02] VITALS: BP 155/71
--- NOTE | 2019-12-22 05:02 | NUR ---
Patient discharged to home in stable condition. Written and verbal after care instructions given. Patient verbalizes understanding of instructions. Stressed follow up or return to ER for worsening s/s. patient left with stable gait.
[2019-12-22 06:05] LABS: ABG BASE EXCESS -0.7 mmol/L; ABG HCO3 23.8 mmol/L; ABG PCO2 38.7 mmHg (35.0-45.0); ABG PH 7.407 (7.350-7.450); ABG PO2 97.7 mmHg (75.0-100.0); ABG SITE RIGHT BRACHIAL; ABG TOTAL HEMOGLOBIN 12.5 G/dL (12.0-16.0); COHb 0.5 % (0.5-1.5); MetHb 0.2 % (0.0-1.5); O2Hb 96.6 % (94.0-97.0); VENT MODE ROOM AIR
== END 2019-12-22 05:03 | disposition home or self-care (01) ==
LOC: ER 02:24
DX: J02.9 Acute pharyngitis, unspecified (principal); R79.82 Elevated C-reactive protein (CRP); Z20.828 Contact with and (suspected) exposure to other viral communicable diseases; J44.9 Chronic obstructive pulmonary disease, unspecified; Z85.3 Personal history of malignant neoplasm of breast; Z92.21 Personal history of antineoplastic chemotherapy; Z90.12 Acquired absence of left breast and nipple; I11.9 Hypertensive heart disease without heart failure; Z91.041 Radiographic dye allergy status; E78.00 Pure hypercholesterolemia, unspecified; Z79.899 Other long term (current) drug therapy; R00.1 Bradycardia, unspecified
CPT/HCPCS: 36415; 36600; 71045; 80048; 80076; 81001; 82728; 83605; 83615; 83690; 85025; 85379; 85385; 86140; 86403; 87070; 87400; 93005; 96374; 99285; J1100; U0003; A9150; J7030

== ENCOUNTER 2021-07-02 10:55 | Outpatient (CLI) | payer MEDICARE, OTHER ==
[~2021-07-02 10:55] MED LIST changes: +AMLO-212 PO; -AMLO5TAB9 PO; +ENAL-80 PO; -ENAL10TA PO
== END 2021-07-02 23:59 | disposition home or self-care (01) ==
LOC: RAD 10:55
PROVIDERS: ATTEND Internal Medicine
DX: M19.011 Primary osteoarthritis, right shoulder (principal); M75.92 Shoulder lesion, unspecified, left shoulder; K80.20 Calculus of gallbladder without cholecystitis without obstruction; K44.9 Diaphragmatic hernia without obstruction or gangrene; K57.30 Diverticulosis of large intestine without perforation or abscess without bleeding; R91.1 Solitary pulmonary nodule; N28.1 Cyst of kidney, acquired; I70.0 Atherosclerosis of aorta; M43.16 Spondylolisthesis, lumbar region; M48.02 Spinal stenosis, cervical region; M47.813 Spondylosis without myelopathy or radiculopathy, cervicothoracic region; Z90.49 Acquired absence of other specified parts of digestive tract
CPT/HCPCS: 72072; 73030

== ENCOUNTER 2023-06-18 11:27 | Inpatient (IN) | payer MEDICARE, OTHER ==
[~2023-06-18] VITALS: Ht 152.4 cm; Wt 78.0 kg
[2023-06-18 13:06] LABS: BASOPHILS # (AUTO) 0.1 K/UL (0.0-0.2); BASOPHILS % (AUTO) 1.4 % (0.0-2.0); EOSINOPHILS # (AUTO) 0.2 K/uL (0.0-0.7); EOSINOPHILS % (AUTO) 3.4 % (0.0-7.0); HEMATOCRIT 33.4 % (31.2-41.9); LYMPHOCYTES # (AUTO) 1.3 K/uL (0.8-4.8); LYMPHOCYTES % (AUTO) 20.1 % (20.5-51.5); MEAN CORPUSCULAR HEMOGLOBIN 27.4 uug (24.7-32.8); MEAN CORPUSCULAR HGB CONC 33 g/dL (32.3-35.6); MEAN CORPUSCULAR VOLUME 83.4 fL (75.5-95.3); MONOCYTES # (AUTO) 0.4 K/uL (0.1-1.30); MONOCYTES % (AUTO) 6.4 % (0.0-11.0); NEUTROPHILS # (AUTO) 4.5 K/uL (1.8-8.9); NEUTROPHILS % (AUTO) 68.7 % (38.5-71.5); PLATELET COUNT (AUTO) 236 K/uL (179-408); RED CELL DISTRIBUTION WIDTH 13.6 % (12.3-17.7); WHITE BLOOD COUNT (AUTO) 6.6 K/uL (3.8-11.8)
[2023-06-18 13:12] LABS: DIFFERENTIAL COMMENT 1
[2023-06-18] MEDS ORDERED: HYDROCODONE/APAP 5-325MG TABLET ONE (13:26)
[2023-06-18 13:28] LABS: ALANINE AMINOTRANSFERASE 15 U/L (14-59); ALBUMIN 3.5 g/dL (3.4-5.0); ALKALINE PHOSPHATASE 67 U/L (50-136); BILIRUBIN,DIRECT 0.1 mg/dL (0.0-0.2); BILIRUBIN,TOTAL 0.4 mg/dL (0.2-1.0); CALCIUM 9.4 mg/dL (8.5-10.1); CARBON DIOXIDE 26 mmol/L (21-32); CHLORIDE 98 mmol/L (98-107); GLUCOSE 110 mg/dL (74-106); NT-PRO BNP 57 pg/mL (0-125); POTASSIUM 5.1 mmol/L (3.5-5.1); SODIUM SERUM 130 mmol/L (136-145); TOTAL PROTEIN, SERUM 7.1 g/dL (6.4-8.2); UREA NITROGEN, BLOOD 22 mg/dL (7-18)
[2023-06-18] MEDS: HYDROCODONE/APAP 5-325MG TABLET PO ONE (13:40)
[2023-06-18 13:59] LABS: ASPARTATE AMINOTRANSFERASE 15 U/L (15-37)
[2023-06-18 18:47] VITALS: BP 107/59; TEMP 97.7; O2SAT 99
[2023-06-18 20:00] VITALS: BP 147/59; TEMP 97.2; O2SAT 99
[2023-06-18] MEDS ORDERED: AZIL40TA PO (20:04)
[2023-06-18] MEDS ORDERED: LINA145C PO (20:04)
[2023-06-18] MEDS ORDERED: TERA1CAP4 PO (20:04)
[2023-06-18] MEDS ORDERED: METF-494 PO (20:04)
[2023-06-18] MEDS ORDERED: LETR2.5T PO (20:04)
[2023-06-18] MEDS ORDERED: ALIR75PE6 SQ (20:04)
[2023-06-18] MEDS ORDERED: FLUT16SP16 BNOSTRILS (20:04)
[2023-06-18] MEDS ORDERED: DOCU100C36 PO (20:04)
[2023-06-18] MEDS ORDERED: CLON-418 PO (20:04)
[2023-06-18] MEDS ORDERED: ALBU90AE INH (20:04)
[2023-06-18] MEDS ORDERED: FLUT12AE3 IH (20:04)
[2023-06-18] MEDS ORDERED: CARV25TA PO (20:04)
[2023-06-18] MEDS ORDERED: SPIR25TA PO (20:04)
[2023-06-18] MEDS ORDERED: ESCI5TAB PO (20:04)
[2023-06-18] MEDS ORDERED: ONDANSETRON 4 MG/2 ML VIAL IV PRN (20:30)
[2023-06-18] MEDS ORDERED: HYDROCODONE/APAP 5-325MG TABLET PO PRN (20:30)
[2023-06-18] MEDS ORDERED: KETOROLAC TROMETHAMINE 15 MG INJ IVP PRN (20:30)
[2023-06-18] MEDS ORDERED: MAGNESIUM HYDROXIDE 30 ML LIQUID UDC PO PRN (20:30)
[2023-06-18] MEDS ORDERED: TEMAZEPAM 15 MG CAPSULE PO PRN (20:30)
[2023-06-18] MEDS ORDERED: hydrALAZINE HCL 25 MG TABLET PO PRN (20:30)
[2023-06-18] MEDS ORDERED: ALBUTEROL SULFATE 2.5 MG/ 0.5 ML NEBU NEB PRN (20:45)
[2023-06-18] MEDS: methylPREDNISolone SOD SUCC 40 MG/ML VIAL IV ONE (21:08)
[2023-06-18] MEDS: CARISOPRODOL 350 MG TABLET PO SCH (21:09)
[2023-06-18] MEDS: ENOXAPARIN SODIUM 40 MG/0.4 ML DISP.SYRIN SQ SCH (21:09)
[2023-06-19 00:05] VITALS: BP_SYST 141; BP_SYST 153; BP_DIAS 55; BP_DIAS 72; TEMP 98.1; O2SAT 97
[2023-06-19 04:35] VITALS: BP 113/50; TEMP 97.8; O2SAT 97
[2023-06-19] MEDS: PANTOPRAZOLE SODIUM 40 MG TABLET.DR PO SCH (06:21)
[2023-06-19 07:27] VITALS: BP 134/58; TEMP 97.6; O2SAT 96
[2023-06-19 07:52] LABS: BASOPHILS % (AUTO) 0.2 % (0.0-2.0); HEMATOCRIT 34.2 % (31.2-41.9); HEMOGLOBIN 11.5 g/dL (10.9-14.3); LYMPHOCYTES # (AUTO) 0.7 K/uL (0.8-4.8); LYMPHOCYTES % (AUTO) 9.5 % (20.5-51.5); MEAN CORPUSCULAR HEMOGLOBIN 27.9 uug (24.7-32.8); MEAN CORPUSCULAR HGB CONC 34 g/dL (32.3-35.6); MEAN CORPUSCULAR VOLUME 83.1 fL (75.5-95.3); MONOCYTES # (AUTO) 0.1 K/uL (0.1-1.30); MONOCYTES % (AUTO) 0.8 % (0.0-11.0); NEUTROPHILS # (AUTO) 7.1 K/uL (1.8-8.9); NEUTROPHILS % (AUTO) 89.5 % (38.5-71.5); PLATELET COUNT (AUTO) 242 K/uL (179-408); RED BLOOD CELL COUNT(AUTO) 4.12 MIL/uL (3.63-4.92); RED CELL DISTRIBUTION WIDTH 13.2 % (12.3-17.7); WHITE BLOOD COUNT (AUTO) 7.9 K/uL (3.8-11.8)
[2023-06-19 08:12] LABS: ALANINE AMINOTRANSFERASE 20 U/L (14-59); ALBUMIN 3.3 g/dL (3.4-5.0); ALKALINE PHOSPHATASE 59 U/L (50-136); ASPARTATE AMINOTRANSFERASE 14 U/L (15-37); BILIRUBIN,TOTAL 0.3 mg/dL (0.2-1.0); CARBON DIOXIDE 25 mmol/L (21-32); CHLORIDE 98 mmol/L (98-107); CHOLESTEROL 163 mg/dL (<200); CREATININE 1.1 mg/dL (0.6-1.3); DIFFERENTIAL COMMENT 1; GLUCOSE 159 mg/dL (74-106); HDL CHOLESTEROL 53 mg/dL (40-60); MAGNESIUM 1.6 mg/dL (1.8-2.4); PHOSPHOROUS 3.9 mg/dL (2.5-4.9); SODIUM SERUM 132 mmol/L (136-145); TRIGLYCERIDES 145 MG/DL (30-150); UREA NITROGEN, BLOOD 25 mg/dL (7-18)
[2023-06-19 08:18] LABS: IRON, SERUM 32 ug/dL (50-175)
[2023-06-19 08:27] LABS: THYROID STIMULATING HORMONE 1.461 mIU/mL (0.358-3.740)
[2023-06-19 08:34] LABS: CALCIUM 9.4 mg/dL (8.5-10.1)
[2023-06-19] MEDS: ASPIRIN EC 81 MG TABLET.DR PO SCH (09:00)
[2023-06-19] MEDS: MAGNESIUM SULFATE/D5W 100 ML IV SCH (09:02)
[2023-06-19] MEDS: FLUTICASONE/VILANTEROL 1 EACH BLST.W.DEV INH SCH (09:02)
[2023-06-19] MEDS ORDERED: ACET-2154 PO (09:21)
[2023-06-19] MEDS ORDERED: ATOR40TA PO (09:22)
[2023-06-19] MEDS ORDERED: MONT10TA33 PO (09:30)
[2023-06-19] MEDS ORDERED: OMEG1CAP40 PO (09:30)
[2023-06-19] MEDS ORDERED: PANT40TA49 PO (09:30)
[2023-06-19] MEDS ORDERED: METF-440 PO (09:30)
[2023-06-19] MEDS ORDERED: MULT-225 PO (09:32)
[2023-06-19] MEDS ORDERED: LORA10TA64 PO (09:33)
[2023-06-19] MEDS ORDERED: IPRA3AMP23 IH (09:36)
[2023-06-19 11:13] VITALS: BP 125/53; TEMP 98.3; O2SAT 96
[2023-06-19] MEDS ORDERED: ALBU8HFA4 PO (12:15)
[2023-06-19] MEDS: ACETAMINOPHEN 325 MG TABLET PO PRN (13:35)
[2023-06-19 15:13] VITALS: BP 115/61; TEMP 97.8; O2SAT 98
[2023-06-19] MEDS ORDERED: CARI350T PO (17:13)
== END 2023-06-19 17:30 | disposition home or self-care (01) | DRG 206 ==
LOC: ER 11:27 → TELE3 18:10 → MEDSURG3 06-19 10:05
PROVIDERS: ADMIT Internal Medicine; ATTEND Internal Medicine
DX: M94.0 Chondrocostal junction syndrome [Tietze] (principal); E87.1 Hypo-osmolality and hyponatremia; M54.14 Radiculopathy, thoracic region; E11.9 Type 2 diabetes mellitus without complications; E86.1 Hypovolemia; R79.1 Abnormal coagulation profile; J44.9 Chronic obstructive pulmonary disease, unspecified; F32.A Depression, unspecified; F41.9 Anxiety disorder, unspecified; I10 Essential (primary) hypertension; Z91.041 Radiographic dye allergy status; E66.9 Obesity, unspecified; E78.00 Pure hypercholesterolemia, unspecified; Z79.84 Long term (current) use of oral hypoglycemic drugs; Z79.82 Long term (current) use of aspirin; Z68.33 Body mass index [BMI] 33.0-33.9, adult; Z90.12 Acquired absence of left breast and nipple; Z85.3 Personal history of malignant neoplasm of breast; Z88.1 Allergy status to other antibiotic agents; Z85.820 Personal history of malignant melanoma of skin; Z86.010 Personal history of colon polyps; R60.0 Localized edema
CPT/HCPCS: 36415; 71250; 73200; 78580; 83550; 83735; 84100; 84443; 84484; 85025; 85730; 93005; A4663; A9540; G0378; J1650; J2920; J3475

== ENCOUNTER 2023-09-28 14:07 | Emergency (ER) | payer MEDICARE, OTHER ==
[~2023-09-28] VITALS: Ht 154.9 cm; Wt 77.1 kg
[~2023-09-28 14:07] MED LIST changes: +ACET-2154 PO; -ACET325T53 PO; +ALIR75PE6 SQ; -AMLO-212 PO; -BUDE180A INH; +CARI350T PO; +CARV25TA PO; +DOCU100C36 PO; -ENAL-80 PO; +ESCI5TAB PO; +FLUT12AE3 IH; +FLUT16SP16 BNOSTRILS; +IPRA3AMP23 IH; +LETR2.5T PO; -LEVO500T2 PO; +LEVO500T90 PO; +LINA145C PO; +LORA10TA64 PO; +METF-440 PO; -METH4TAB3 PO; +METR500T PO; -MONT10TA22 PO; +MONT10TA33 PO; +MULT-225 PO; -OMEG1CAP PO; +OMEG1CAP40 PO; -PANT40TA2 PO; +PANT40TA49 PO; -SODI650T PO
[2023-09-28 14:38] LABS: HEMOGLOBIN 11.3 g/dL (10.9-14.3); WHITE BLOOD COUNT (AUTO) 8.7 K/uL (3.8-11.8)
[2023-09-28] MEDS: MORPHINE SULFATE 4 MG/1 ML DISP.SYRIN IV ONE (14:38)
[2023-09-28] MEDS: ONDANSETRON 4 MG/2 ML VIAL IV ONE (14:38)
[2023-09-28 14:42] LABS: CALCIUM 8.6 mg/dL (8.5-10.1); CARBON DIOXIDE 26 mmol/L (21-32); CHLORIDE 97 mmol/L (98-107); CREATININE 1.1 mg/dL (0.6-1.3); GLUCOSE 140 mg/dL (74-106); POTASSIUM 4.4 mmol/L (3.5-5.1); SODIUM SERUM 132 mmol/L (136-145); UREA NITROGEN, BLOOD 17 mg/dL (7-18)
[2023-09-28 14:43] LABS: BASOPHILS # (AUTO) 0.3 K/UL (0.0-0.2); BASOPHILS % (AUTO) 3.3 % (0.0-2.0); DIFFERENTIAL COMMENT 0; EOSINOPHILS # (AUTO) 0.1 K/uL (0.0-0.7); EOSINOPHILS % (AUTO) 1.7 % (0.0-7.0); HEMATOCRIT 33.7 % (31.2-41.9); LYMPHOCYTES # (AUTO) 1.5 K/uL (0.8-4.8); LYMPHOCYTES % (AUTO) 17.7 % (20.5-51.5); MEAN CORPUSCULAR HEMOGLOBIN 27.6 uug (24.7-32.8); MEAN CORPUSCULAR HGB CONC 34 g/dL (32.3-35.6); MEAN CORPUSCULAR VOLUME 82.4 fL (75.5-95.3); MONOCYTES # (AUTO) 0.6 K/uL (0.1-1.30); MONOCYTES % (AUTO) 6.9 % (0.0-11.0); NEUTROPHILS # (AUTO) 6.2 K/uL (1.8-8.9); NEUTROPHILS % (AUTO) 70.4 % (38.5-71.5); PLATELET COUNT (AUTO) 268 K/uL (179-408); RED BLOOD CELL COUNT(AUTO) 4.09 MIL/uL (3.63-4.92); RED CELL DISTRIBUTION WIDTH 14.2 % (12.3-17.7)
[2023-09-28] MEDS: IV NORMAL SALINE 500 ML BAG IV ONE (14:45)
[2023-09-28 14:48] LABS: ALANINE AMINOTRANSFERASE 22 U/L (14-59); ALBUMIN 3.4 g/dL (3.4-5.0); ALKALINE PHOSPHATASE 66 U/L (50-136); ASPARTATE AMINOTRANSFERASE 10 U/L (15-37); BILIRUBIN,DIRECT < 0.1 mg/dL (0.0-0.2); BILIRUBIN,TOTAL 0.4 mg/dL (0.2-1.0); LIPASE 20 U/L (16-77); TOTAL PROTEIN, SERUM 6.9 g/dL (6.4-8.2)
[2023-09-28 15:52] LABS: *BILIRUBIN,URIN NEGATIVE (NEGATIVE); *BLOOD, URINE NEGATIVE (NEGATIVE); *CLARITY,URINE CLEAR (CLEAR); *COLOR,URINE YELLOW (YELLOW); *KETONES,URINE NEGATIVE (NEGATIVE); *PROTEIN,URINE NEGATIVE (NEGATIVE); *UROBILINOGEN,URINE 0.2 E.U./dl (NORMAL); LEUKOCYTE ESTERASE ,URINE TRACE (NEGATIVE); NITRITE, URINE NEGATIVE (NEGATIVE); PH,URINE 6.5 (5.0-8.0); UGLUCOSE NEGATIVE (NEGATIVE)
[2023-09-28 15:54] LABS: BACTERIA,URINE FEW /HPF (NONE SEEN); RBC,URINE 0-3 /HPF (0-3); SQUAMOUS EPITHELIAL CELL,UR FEW /HPF (NONE SEEN)
[2023-09-28] MEDS ORDERED: FOSFOMYCIN TROMETHAMINE 3 GM PACKET ONE (16:08)
[2023-09-28] MEDS: FOSFOMYCIN TROMETHAMINE 3 GM PACKET PO ONE (16:12)
[2023-09-28] MEDS ORDERED: CIPROFLOXACIN IV 400 MG in PREMIXED 1 EACH IV ONE ×2 (17:15→17:45)
[2023-09-28] MEDS ORDERED: LACT10SO58 PO (17:32)
[2023-09-28] MEDS ORDERED: CIPR-263 PO (17:32)
[2023-09-28] MEDS ORDERED: MAGN296S70 PO (17:32)
[2023-09-28] MEDS: CIPROFLOXACIN IV 400 MG in PREMIXED 1 EACH IV ONE (17:45)
[2023-09-28] MEDS: CIPROFLOXACIN HCL 250 MG TABLET PO ONE (18:05)
[2023-09-28 18:22] VITALS: BP 117/69; TEMP 97.8; O2SAT 98
== END 2023-09-28 18:24 | disposition home or self-care (01) ==
LOC: ER 14:07
DX: K57.32 Diverticulitis of large intestine without perforation or abscess without bleeding (principal); N39.0 Urinary tract infection, site not specified; K62.89 Other specified diseases of anus and rectum; E78.00 Pure hypercholesterolemia, unspecified; J44.9 Chronic obstructive pulmonary disease, unspecified; E11.9 Type 2 diabetes mellitus without complications; F32.A Depression, unspecified; Z79.899 Other long term (current) drug therapy; Z88.5 Allergy status to narcotic agent; Z88.1 Allergy status to other antibiotic agents
CPT/HCPCS: 99285; 74176; 96365; 96361; 80076; 80048; 81001; 83690; 85025; 36415; 87086; J0744; J7040; A4606; A4663

== ENCOUNTER 2023-11-01 10:26 | Emergency (ER) | payer MEDICARE, OTHER ==
[~2023-11-01] VITALS: Ht 154.9 cm; Wt 76.7 kg
[~2023-11-01 10:26] MED LIST changes: +CIPR-263 PO; +LACT10SO58 PO; +MAGN296S70 PO
[2023-11-01 10:29] VITALS: O2SAT 100
[2023-11-01] MEDS ORDERED: SULF1TAB48 PO (11:08)
[2023-11-01] MEDS ORDERED: CLIN300C12 PO (11:08)
[2023-11-01] MEDS ORDERED: BACITRACIN ZINC OINT 15 GM TUBE ONE (11:11)
[2023-11-01] MEDS ORDERED: TDAP DIPH,PERTUSS,TET VAC/PF 0.5 ML DISP.SYRIN IM ONE (11:12)
[2023-11-01] MEDS: BACITRACIN ZINC OINT 15 GM TUBE TOP ONE (11:35)
[2023-11-01] MEDS: TDAP DIPH,PERTUSS,TET VAC/PF 0.5 ML DISP.SYRIN IM ONE (11:38)
== END 2023-11-01 11:36 | disposition home or self-care (01) ==
LOC: ER 10:28
DX: S81.812A Laceration without foreign body, left lower leg, initial encounter (principal); E78.5 Hyperlipidemia, unspecified; J44.9 Chronic obstructive pulmonary disease, unspecified; E11.9 Type 2 diabetes mellitus without complications; Z88.1 Allergy status to other antibiotic agents; Z88.8 Allergy status to other drugs, medicaments and biological substances; Z91.041 Radiographic dye allergy status; Z79.82 Long term (current) use of aspirin; Z79.899 Other long term (current) drug therapy; W54.0XXA Bitten by dog, initial encounter; Y93.89 Activity, other specified; Y92.89 Other specified places as the place of occurrence of the external cause; Y99.8 Other external cause status
CPT/HCPCS: 90715; A4606; A4663

== ENCOUNTER 2024-03-27 11:45 | Emergency (ER) | payer MEDICARE, OTHER ==
[~2024-03-27] VITALS: Ht 154.9 cm; Wt 78.9 kg
[~2024-03-27 11:45] MED LIST changes: +CLIN300C12 PO; +SULF1TAB48 PO
[2024-03-27 12:41] LABS: *BILIRUBIN,URIN NEGATIVE (NEGATIVE); *BLOOD, URINE 3+ (NEGATIVE); *KETONES,URINE NEGATIVE (NEGATIVE); *PROTEIN,URINE 2+ (NEGATIVE); *UROBILINOGEN,URINE 0.2 E.U./dl (NORMAL); LEUKOCYTE ESTERASE ,URINE 2+ (NEGATIVE); NITRITE, URINE NEGATIVE (NEGATIVE); UGLUCOSE NEGATIVE (NEGATIVE)
[2024-03-27 12:42] LABS: *CLARITY,URINE CLOUDY (CLEAR); *COLOR,URINE AMBER (YELLOW)
[2024-03-27 12:43] LABS: BACTERIA,URINE MODERATE /HPF (NONE SEEN); RBC,URINE 80-100 /HPF (0-3); SQUAMOUS EPITHELIAL CELL,UR MODERATE /HPF (NONE SEEN); WBC,URINE 50-80 /HPF (0-3)
[2024-03-27 12:49] LABS: BASOPHILS % (AUTO) 0.4 % (0.0-2.0); EOSINOPHILS # (AUTO) 0.1 K/uL (0.0-0.7); EOSINOPHILS % (AUTO) 0.8 % (0.0-7.0); HEMATOCRIT 33.8 % (31.2-41.9); HEMOGLOBIN 11.1 g/dL (10.9-14.3); LYMPHOCYTES # (AUTO) 1.9 K/uL (0.8-4.8); LYMPHOCYTES % (AUTO) 18.9 % (20.5-51.5); MEAN CORPUSCULAR HEMOGLOBIN 26.6 uug (24.7-32.8); MEAN CORPUSCULAR HGB CONC 33 g/dL (32.3-35.6); MEAN CORPUSCULAR VOLUME 81.5 fL (75.5-95.3); MONOCYTES # (AUTO) 0.6 K/uL (0.1-1.30); MONOCYTES % (AUTO) 6.2 % (0.0-11.0); NEUTROPHILS # (AUTO) 7.4 K/uL (1.8-8.9); NEUTROPHILS % (AUTO) 73.7 % (38.5-71.5); PLATELET COUNT (AUTO) 251 K/uL (179-408); RED BLOOD CELL COUNT(AUTO) 4.15 MIL/uL (3.63-4.92); RED CELL DISTRIBUTION WIDTH 13.9 % (12.3-17.7)
[2024-03-27 12:51] LABS: DIFFERENTIAL COMMENT 1
[2024-03-27 13:00] LABS: CALCIUM 9.4 mg/dL (8.5-10.1); CREATININE 1.1 mg/dL (0.6-1.3); MAGNESIUM 1.7 mg/dL (1.8-2.4); POTASSIUM 5.2 mmol/L (3.5-5.1)
[2024-03-27] MEDS: CEFTRIAXONE 1 G in IV DEXTROSE 5% 50 ML IV ONE (13:18)
[2024-03-27] MEDS ORDERED: ACETAMINOPHEN 325 MG TABLET ONE (13:23)
[2024-03-27] MEDS ORDERED: CEFTRIAXONE /D5W 50ML IVPB **ER PYXIS IV ONE (13:31)
[2024-03-27] MEDS ORDERED: diphenhydrAMINE 50 MG/1 ML VIAL ONE (13:48)
[2024-03-27] MEDS: diphenhydrAMINE 50 MG/1 ML VIAL IV ONE (13:49)
[2024-03-27] MEDS: IV NS 1000 ML 1,000 ML IV ONE (13:57)
[2024-03-27] MEDS: MAGNESIUM SULFATE/D5W 100 ML IV SCH (14:00)
[2024-03-27] MEDS ORDERED: GENTAMICIN SULFATE 20 MG/2 ML VIAL IV ONE (14:00)
[2024-03-27] MEDS ORDERED: MAGNESIUM SULFATE/D5W 100 ML ONE ×2 (14:04→14:16)
[2024-03-27] MEDS: ACETAMINOPHEN 325 MG TABLET PO ONE (14:08)
[2024-03-27] MEDS ORDERED: hydrOXYzine HCL 25 MG TABLET ONE (14:38)
[2024-03-27] MEDS: hydrOXYzine HCL 25 MG TABLET PO ONE (14:41)
[2024-03-27] MEDS: GENTAMICIN SULFATE INJ 120 MG in IV DEXTROSE 5% 100 ML IV ONE (14:50)
[2024-03-27] MEDS ORDERED: HYDR-501 PO (15:16)
[2024-03-27 16:12] VITALS: O2SAT 97
== END 2024-03-27 16:09 | disposition home or self-care (01) ==
LOC: ER 11:46
DX: N39.0 Urinary tract infection, site not specified (principal); T50.905A Adverse effect of unspecified drugs, medicaments and biological substances, initial encounter; E83.42 Hypomagnesemia; E11.9 Type 2 diabetes mellitus without complications; E78.00 Pure hypercholesterolemia, unspecified; F32.A Depression, unspecified; F41.9 Anxiety disorder, unspecified; I11.9 Hypertensive heart disease without heart failure; J44.9 Chronic obstructive pulmonary disease, unspecified; Z79.51 Long term (current) use of inhaled steroids; Z79.811 Long term (current) use of aromatase inhibitors; Z79.82 Long term (current) use of aspirin; Z79.84 Long term (current) use of oral hypoglycemic drugs; Z79.899 Other long term (current) drug therapy; Z85.3 Personal history of malignant neoplasm of breast; Z85.820 Personal history of malignant melanoma of skin; Z90.12 Acquired absence of left breast and nipple; Z88.0 Allergy status to penicillin; Z88.1 Allergy status to other antibiotic agents; Z88.5 Allergy status to narcotic agent; Z88.7 Allergy status to serum and vaccine; Z88.8 Allergy status to other drugs, medicaments and biological substances; Z91.041 Radiographic dye allergy status; Y92.89 Other specified places as the place of occurrence of the external cause
CPT/HCPCS: 99284; 96365; 96367; 96366; 96375; 80048; 81001; 83735; 85025; 36415; 96368; 87086; J0696; J1200; J1580; J3475 ×2; J7040; A4606; A4663

== ENCOUNTER 2024-05-05 14:58 | Inpatient (IN) | payer MEDICARE, OTHER ==
[~2024-05-05] VITALS: Ht 185.4 cm; Wt 79.4 kg
[~2024-05-05 14:58] MED LIST changes: +HYDR-501 PO
[2024-05-05 15:59] LABS: BASOPHILS # (AUTO) 0.1 K/UL (0.0-0.2); BASOPHILS % (AUTO) 0.6 % (0.0-2.0); EOSINOPHILS # (AUTO) 0.1 K/uL (0.0-0.7); EOSINOPHILS % (AUTO) 0.6 % (0.0-7.0); HEMATOCRIT 30.4 % (31.2-41.9); HEMOGLOBIN 10.1 g/dL (10.9-14.3); LYMPHOCYTES # (AUTO) 1.3 K/uL (0.8-4.8); LYMPHOCYTES % (AUTO) 12.5 % (20.5-51.5); MEAN CORPUSCULAR HEMOGLOBIN 27.3 uug (24.7-32.8); MEAN CORPUSCULAR HGB CONC 33 g/dL (32.3-35.6); MEAN CORPUSCULAR VOLUME 82.1 fL (75.5-95.3); MONOCYTES # (AUTO) 0.7 K/uL (0.1-1.30); MONOCYTES % (AUTO) 6.6 % (0.0-11.0); NEUTROPHILS # (AUTO) 8.3 K/uL (1.8-8.9); NEUTROPHILS % (AUTO) 79.7 % (38.5-71.5); PLATELET COUNT (AUTO) 253 K/uL (179-408); RED BLOOD CELL COUNT(AUTO) 3.71 MIL/uL (3.63-4.92); RED CELL DISTRIBUTION WIDTH 14.3 % (12.3-17.7); WHITE BLOOD COUNT (AUTO) 10.4 K/uL (3.8-11.8)
[2024-05-05 16:03] LABS: *BILIRUBIN,URIN NEGATIVE (NEGATIVE); *BLOOD, URINE NEGATIVE (NEGATIVE); *CLARITY,URINE CLEAR (CLEAR); *COLOR,URINE YELLOW (YELLOW); *KETONES,URINE TRACE (NEGATIVE); *PROTEIN,URINE NEGATIVE (NEGATIVE); *UROBILINOGEN,URINE 0.2 E.U./dl (NORMAL); LEUKOCYTE ESTERASE ,URINE NEGATIVE (NEGATIVE); NITRITE, URINE NEGATIVE (NEGATIVE); UGLUCOSE NEGATIVE (NEGATIVE)
[2024-05-05 16:06] LABS: CALCIUM 8.9 mg/dL (8.5-10.1); CREATININE 1.3 mg/dL (0.6-1.3); POTASSIUM 4.5 mmol/L (3.5-5.1)
[2024-05-05 16:12] LABS: ALBUMIN 3.3 g/dL (3.4-5.0); BILIRUBIN,DIRECT 0.1 mg/dL (0.0-0.2); BILIRUBIN,TOTAL 0.4 mg/dL (0.2-1.0); TOTAL PROTEIN, SERUM 6.8 g/dL (6.4-8.2)
[2024-05-05] MEDS ORDERED: METRONIDAZOLE 500 MG/NS 100ML 100 ML IV ONE (17:01)
[2024-05-05] MEDS: METRONIDAZOLE 500 MG/NS 100 ML PIGGYBACK IV ONE (17:07)
[2024-05-05] MEDS: levoFLOXacin 750 MG/D5W 150 ML PIGGYBACK IV ONE (17:10)
[2024-05-05] MEDS: CIPROFLOXACIN IV 400 MG in PREMIXED 1 EACH IV ONE (17:55)
[2024-05-05] MEDS ORDERED: ONDANSETRON 4 MG/2 ML VIAL IV PRN (18:00)
[2024-05-05] MEDS ORDERED: REMEDY ESSENTIAL ZINC PASTE 113 GM TP PRN (18:00)
[2024-05-05] MEDS ORDERED: METOCLOPRAMIDE HCL 10 MG/2 ML VIAL ONE (18:49)
[2024-05-05] MEDS ORDERED: FENTANYL CITRATE 100 MCG/2 ML AMPUL ONE (18:49)
[2024-05-05] MEDS: METOCLOPRAMIDE HCL 10 MG/2 ML VIAL IV ONE (18:57)
[2024-05-05] MEDS: FENTANYL CITRATE 100 MCG/2 ML AMPUL IV ONE (18:57)
[2024-05-05 20:45] VITALS: BP 111/45; TEMP 98.4; O2SAT 96
[2024-05-05] MEDS: ACETAMINOPHEN 325 MG TABLET PO PRN (21:38)
[2024-05-05] MEDS: METRONIDAZOLE 500 MG/NS 100ML 500 MG in PREMIXED 1 EACH IV SCH (22:13)
[2024-05-05] MEDS: IV D5 1/2 NS 1000 ML 1,000 ML IV PRN (23:34)
[2024-05-06 06:30] VITALS: BP 127/67; TEMP 98.5; O2SAT 97
[2024-05-06 06:56] LABS: BASOPHILS # (AUTO) 0.1 K/UL (0.0-0.2); BASOPHILS % (AUTO) 1.1 % (0.0-2.0); EOSINOPHILS # (AUTO) 0.1 K/uL (0.0-0.7); HEMATOCRIT 29.5 % (31.2-41.9); HEMOGLOBIN 10.1 g/dL (10.9-14.3); LYMPHOCYTES # (AUTO) 1.8 K/uL (0.8-4.8); LYMPHOCYTES % (AUTO) 28.3 % (20.5-51.5); MEAN CORPUSCULAR HEMOGLOBIN 27.8 uug (24.7-32.8); MEAN CORPUSCULAR HGB CONC 34 g/dL (32.3-35.6); MEAN CORPUSCULAR VOLUME 81.3 fL (75.5-95.3); MONOCYTES # (AUTO) 0.5 K/uL (0.1-1.30); MONOCYTES % (AUTO) 8.1 % (0.0-11.0); NEUTROPHILS # (AUTO) 3.9 K/uL (1.8-8.9); NEUTROPHILS % (AUTO) 60.5 % (38.5-71.5); PLATELET COUNT (AUTO) 238 K/uL (179-408); RED BLOOD CELL COUNT(AUTO) 3.63 MIL/uL (3.63-4.92); RED CELL DISTRIBUTION WIDTH 14.1 % (12.3-17.7); WHITE BLOOD COUNT (AUTO) 6.4 K/uL (3.8-11.8)
[2024-05-06 07:06] LABS: DIFFERENTIAL COMMENT 1
[2024-05-06 07:17] LABS: CREATININE 1.1 mg/dL (0.6-1.3); POTASSIUM 4.6 mmol/L (3.5-5.1)
[2024-05-06 07:18] LABS: MAGNESIUM 1.9 mg/dL (1.8-2.4); PHOSPHOROUS 4.1 mg/dL (2.5-4.9)
[2024-05-06] MEDS: PANTOPRAZOLE SODIUM 40 MG VIAL IV SCH (08:05)
[2024-05-06] MEDS: CIPROFLOXACIN IV 400 MG in PREMIXED 1 EACH IV SCH (08:05)
[2024-05-06] MEDS: ENOXAPARIN SODIUM 40 MG/0.4 ML DISP.SYRIN SQ SCH (08:10)
[2024-05-06] MEDS ORDERED: CARISOPRODOL 350 MG TABLET PO PRN (11:45)
[2024-05-06] MEDS ORDERED: ACETAMINOPHEN 325 MG TABLET-SA PATIENTS-PAIN ONLY PO PRN (11:45)
[2024-05-06] MEDS: MAGNESIUM HYDROXIDE 30 ML LIQUID UDC PO PRN (13:25)
[2024-05-06] MEDS: MAGNESIUM CITRATE 296 ML BOTTLE PO ONE (15:05)
[2024-05-06] MEDS ORDERED: AZIL40TA PO (17:11)
[2024-05-06] MEDS: CARVEDILOL 25 MG TABLET PO SCH (17:21)
[2024-05-06] MEDS: METFORMIN HCL 500 MG TABLET PO SCH (17:21)
[2024-05-06 19:30] VITALS: BP 114/63; TEMP 98.9; O2SAT 99
[2024-05-06 20:00] VITALS: BP 114/63; TEMP 98.9; O2SAT 99
[2024-05-06] MEDS: ATORVASTATIN 40 MG TABLET PO SCH (22:31)
[2024-05-06] MEDS: MONTELUKAST SODIUM 10 MG TABLET PO SCH (22:31)
[2024-05-07 06:04] VITALS: BP 125/63; TEMP 97.7; O2SAT 97
[2024-05-07] MEDS: PANTOPRAZOLE SODIUM 40 MG TABLET.DR PO SCH (08:03)
[2024-05-07] MEDS: LACTULOSE 20 G/30 ML LIQUID UDC PO SCH (08:06)
[2024-05-07] MEDS: ESCITALOPRAM OXALATE 10 MG TABLET PO SCH (08:17)
[2024-05-07] MEDS: DOCUSATE SODIUM 100 MG CAPSULE PO SCH (08:17)
[2024-05-07] MEDS: ASPIRIN EC 81 MG TABLET.DR PO SCH (08:17)
[2024-05-07] MEDS: OMEGA-3 FATTY ACIDS/FISH OIL CAPSULE PO SCH (08:17)
[2024-05-07] MEDS: MULTIVITAMINS,THERAPEUTIC TABLET PO SCH (08:18)
[2024-05-07] MEDS: LORATADINE 10 MG TAB.RAPDIS PO SCH (08:37)
[2024-05-07] MEDS ORDERED: Medication Not On Formulary EA (Letrozole (Femara) 1 TAB) PO SCH (09:00)
[2024-05-07] MEDS ORDERED: Medication Not On Formulary EA (Escitalopram Oxalate (Lexapro) 1 TAB) PO SCH (09:00)
[2024-05-07] MEDS ORDERED: EDARBI 40 MG PO SCH (09:00)
[2024-05-07] MEDS ORDERED: Medication Not On Formulary EA (Multivitamins (Multiple Vitamin) 1 TAB) PO SCH (09:00)
[2024-05-07] MEDS ORDERED: Medication Not On Formulary EA (Omega-3 Fatty Acids/Fish Oil (Omega 3 1,000 Mg Softgel) PO SCH (09:00)
[2024-05-07 10:54] LABS: BASOPHILS # (AUTO) 0.1 K/UL (0.0-0.2); BASOPHILS % (AUTO) 1.2 % (0.0-2.0); EOSINOPHILS # (AUTO) 0.2 K/uL (0.0-0.7); EOSINOPHILS % (AUTO) 4.2 % (0.0-7.0); HEMATOCRIT 29.7 % (31.2-41.9); HEMOGLOBIN 9.9 g/dL (10.9-14.3); LYMPHOCYTES # (AUTO) 1.3 K/uL (0.8-4.8); LYMPHOCYTES % (AUTO) 31.2 % (20.5-51.5); MEAN CORPUSCULAR HEMOGLOBIN 27.3 uug (24.7-32.8); MEAN CORPUSCULAR HGB CONC 33 g/dL (32.3-35.6); MEAN CORPUSCULAR VOLUME 81.8 fL (75.5-95.3); MONOCYTES # (AUTO) 0.4 K/uL (0.1-1.30); MONOCYTES % (AUTO) 9.2 % (0.0-11.0); NEUTROPHILS # (AUTO) 2.2 K/uL (1.8-8.9); NEUTROPHILS % (AUTO) 54.2 % (38.5-71.5); PLATELET COUNT (AUTO) 246 K/uL (179-408); RED BLOOD CELL COUNT(AUTO) 3.63 MIL/uL (3.63-4.92); WHITE BLOOD COUNT (AUTO) 4.1 K/uL (3.8-11.8)
[2024-05-07 11:10] LABS: CALCIUM 9.1 mg/dL (8.5-10.1); MAGNESIUM 1.8 mg/dL (1.8-2.4); PHOSPHOROUS 3.4 mg/dL (2.5-4.9); POTASSIUM 4.2 mmol/L (3.5-5.1)
[2024-05-07 11:19] LABS: DIFFERENTIAL COMMENT 1
[2024-05-07 11:39] VITALS: BP 147/63; TEMP 97.7; O2SAT 99
[2024-05-07 16:00] VITALS: BP 145/47; TEMP 98.5; O2SAT 98
[2024-05-07 16:11] VITALS: BP 120/63
[2024-05-07] MEDS ORDERED: CIPR500S2 PO (16:41)
[2024-05-07] MEDS ORDERED: METR500T PO (16:41)
== END 2024-05-07 18:00 | disposition home or self-care (01) | DRG 392 ==
LOC: ER 14:58 → MEDSURG3 19:51
PROVIDERS: ADMIT Student in an Organized Health Care Education/Training Program; ATTEND Student in an Organized Health Care Education/Training Program
DX: K57.32 Diverticulitis of large intestine without perforation or abscess without bleeding (principal); E44.1 Mild protein-calorie malnutrition; E86.0 Dehydration; Z68.33 Body mass index [BMI] 33.0-33.9, adult; D64.9 Anemia, unspecified; E66.9 Obesity, unspecified; K59.00 Constipation, unspecified; J44.9 Chronic obstructive pulmonary disease, unspecified; E27.8 Other specified disorders of adrenal gland; E11.9 Type 2 diabetes mellitus without complications; I10 Essential (primary) hypertension; E78.5 Hyperlipidemia, unspecified; Z90.12 Acquired absence of left breast and nipple; Z85.3 Personal history of malignant neoplasm of breast; Z85.820 Personal history of malignant melanoma of skin; Z79.899 Other long term (current) drug therapy; Z88.5 Allergy status to narcotic agent; Z91.041 Radiographic dye allergy status; Z88.1 Allergy status to other antibiotic agents; Z79.82 Long term (current) use of aspirin; Z79.84 Long term (current) use of oral hypoglycemic drugs; Z79.811 Long term (current) use of aromatase inhibitors; Z86.59 Personal history of other mental and behavioral disorders
CPT/HCPCS: 36415; 83690; 83735; 84100; 85025; 94640; A4606; A4663; G0378; J0744; J1650; J2470; J2765; J3010; J3490; J7042; J7070

== ENCOUNTER 2024-11-12 18:35 | Emergency (ER) | payer OTHER, MEDICARE ==
[~2024-11-12] VITALS: Ht 152.4 cm; Wt 79.4 kg
[~2024-11-12 18:35] MED LIST changes: -ASPI-605 PO; +AZIL40TA PO; -CARI350T PO; -CIPR-263 PO; +CIPR500S2 PO; -CLIN300C12 PO; -CLON0.1T PO; -DOCU100C36 PO; -FLUT16SP16 BNOSTRILS; -HYDR-501 PO; -IPRA3AMP23 IH; -LEVO500T90 PO; -SULF1TAB48 PO
[2024-11-12] MEDS ORDERED: ACETAMINOPHEN 500 MG TABLET ONE (19:50)
[2024-11-12] MEDS ORDERED: IBUPROFEN 200 MG TABLET ONE (19:50)
[2024-11-12] MEDS ORDERED: ONDANSETRON ODT 4 MG TAB.RAPDIS ONE (19:50)
[2024-11-12] MEDS: ACETAMINOPHEN 500 MG TABLET PO ONE (20:00)
[2024-11-12] MEDS: IBUPROFEN 200 MG TABLET PO ONE (20:00)
[2024-11-12] MEDS: ONDANSETRON ODT 4 MG TAB.RAPDIS SL ONE (20:00)
[2024-11-12 21:19] VITALS: BP 150/79; O2SAT 97
== END 2024-11-12 20:47 | disposition home or self-care (01) ==
LOC: ER 18:35
DX: Z04.1 Encounter for examination and observation following transport accident (principal); C07 Malignant neoplasm of parotid gland; E11.9 Type 2 diabetes mellitus without complications; E78.00 Pure hypercholesterolemia, unspecified; F32.A Depression, unspecified; I10 Essential (primary) hypertension; J44.9 Chronic obstructive pulmonary disease, unspecified; Z79.51 Long term (current) use of inhaled steroids; Z79.811 Long term (current) use of aromatase inhibitors; Z79.84 Long term (current) use of oral hypoglycemic drugs; Z79.899 Other long term (current) drug therapy; Z85.3 Personal history of malignant neoplasm of breast; Z85.820 Personal history of malignant melanoma of skin; Z88.0 Allergy status to penicillin; Z88.1 Allergy status to other antibiotic agents; Z88.5 Allergy status to narcotic agent; Z88.7 Allergy status to serum and vaccine; Z88.8 Allergy status to other drugs, medicaments and biological substances; Z90.12 Acquired absence of left breast and nipple; Z91.041 Radiographic dye allergy status
CPT/HCPCS: 71045; A4606; A4663; A9150; Q0162

== ENCOUNTER 2025-04-04 11:30 | Inpatient (IN) | payer MEDICARE, OTHER ==
[~2025-04-04] VITALS: Ht 154.9 cm; Wt 79.4 kg
[~2025-04-04 11:30] MED LIST changes: +MONT-41 PO; -MONT10TA33 PO
[2025-04-04 11:53] LABS: PLATELET COUNT (AUTO) 294 K/uL (179-408); RED BLOOD CELL COUNT(AUTO) 4.47 MIL/uL (3.63-4.92); RED CELL DISTRIBUTION WIDTH 13.2 % (12.3-17.7); WHITE BLOOD COUNT (AUTO) 6.1 K/uL (3.8-11.8)
[2025-04-04 12:00] LABS: CREATININE 0.9 mg/dL (0.6-1.3); SODIUM SERUM 140 mmol/L (136-145); UREA NITROGEN, BLOOD 19 mg/dL (7-18)
[2025-04-04] MEDS ORDERED: MESA1.2T3 PO (13:00)
[2025-04-04] MEDS ORDERED: SPIR25TA6 PO (13:00)
[2025-04-04] MEDS ORDERED: MAGN200T5 PO (13:00)
[2025-04-04] MEDS ORDERED: PANT40TA49 PO (13:00)
[2025-04-04] MEDS ORDERED: HYDR-5156 PO (13:00)
[2025-04-04] MEDS ORDERED: TERA2CAP4 PO (13:00)
[2025-04-04] MEDS ORDERED: EZET10TA83 PO (13:00)
[2025-04-04] MEDS ORDERED: CYCL30DR EACHEYE (13:00)
[2025-04-04] MEDS ORDERED: ICOS1CAP PO (13:00)
[2025-04-04] MEDS ORDERED: ASCO500T16 PO (13:00)
[2025-04-04] MEDS ORDERED: BUDE0.253 IH (13:00)
[2025-04-04] MEDS ORDERED: DOCU-141 PO (13:00)
[2025-04-04 13:25] VITALS: BP 157/68
[2025-04-04] MEDS ORDERED: ACET-73 PO (13:48)
[2025-04-04] MEDS ORDERED: MAGN400T26 PO (13:48)
[2025-04-04 14:03] LABS: *BILIRUBIN,URIN NEGATIVE (NEGATIVE); *CLARITY,URINE CLEAR (CLEAR); *COLOR,URINE YELLOW (YELLOW); *KETONES,URINE NEGATIVE (NEGATIVE); *PROTEIN,URINE NEGATIVE (NEGATIVE); *UROBILINOGEN,URINE 0.2 E.U./dl (NORMAL); LEUKOCYTE ESTERASE ,URINE NEGATIVE (NEGATIVE); NITRITE, URINE NEGATIVE (NEGATIVE); UGLUCOSE NEGATIVE (NEGATIVE)
[2025-04-04 14:06] LABS: *BLOOD, URINE TRACE (NEGATIVE)
[2025-04-04] MEDS ORDERED: BUDESONIDE 0.25 MG/2 ML NEBU IH PRN (14:30)
[2025-04-04] MEDS ORDERED: MAGNESIUM HYDROXIDE 30 ML LIQUID UDC PO PRN (14:30)
[2025-04-04] MEDS ORDERED: ONDANSETRON 4 MG/2 ML VIAL IV PRN (14:30)
[2025-04-04 14:40] VITALS: BP 128/67; TEMP 98.4; O2SAT 99
[2025-04-04] MEDS ORDERED: DEXTROSE 50% 50 ML DISP.SYRIN IV PRN (14:45)
[2025-04-04] MEDS ORDERED: INSULIN REGULAR, HUMAN 1000 UNIT/10 ML VIAL SQ PRN (14:45)
[2025-04-04] MEDS: HYDROCODONE/APAP 5-325MG TABLET PO PRN (14:56)
[2025-04-04] MEDS: BLOOD SUGAR DIAGNOSTIC 1 EACH STRIP VI SCH (16:30)
[2025-04-04] MEDS: DOCUSATE SODIUM 100 MG CAPSULE PO SCH (16:35)
[2025-04-04] MEDS: METFORMIN HCL 500 MG TABLET PO SCH (16:35)
[2025-04-04] MEDS: CARVEDILOL 25 MG TABLET PO SCH (16:35)
[2025-04-04 16:39] VITALS: BP 121/64; TEMP 98.6; O2SAT 99
[2025-04-04] MEDS: HYDROCODONE/APAP 5-325MG TABLET PO ONE (16:45)
[2025-04-04 19:10] VITALS: BP 145/64; TEMP 98.5; O2SAT 98
[2025-04-04] MEDS: MOMETASONE/FORMOTEROL 8.8 GM HFA.AER.AD IH SCH (20:12)
[2025-04-04] MEDS: ENOXAPARIN SODIUM 40 MG/0.4 ML DISP.SYRIN SQ SCH (20:18)
[2025-04-04] MEDS ORDERED: FLUTICASONE/SALMETEROL 250/50 INHALER INH SCH (21:00)
[2025-04-04] MEDS: ACETAMINOPHEN 325 MG TABLET PO PRN (22:43)
[2025-04-04 22:59] VITALS: BP 173/82
[2025-04-04 23:54] VITALS: BP 140/63
[2025-04-05 05:43] VITALS: BP 146/62; TEMP 98.2; O2SAT 97
[2025-04-05] MEDS: PANTOPRAZOLE SODIUM 40 MG TABLET.DR PO SCH (06:28)
[2025-04-05] MEDS ORDERED: PANTOPRAZOLE SODIUM 40 MG TABLET.DR PO SCH (07:00)
[2025-04-05 07:23] LABS: PLATELET COUNT (AUTO) 287 K/uL (179-408); RED BLOOD CELL COUNT(AUTO) 4.33 MIL/uL (3.63-4.92); RED CELL DISTRIBUTION WIDTH 13.2 % (12.3-17.7); WHITE BLOOD COUNT (AUTO) 6.8 K/uL (3.8-11.8)
[2025-04-05 07:41] LABS: CREATININE 1.0 mg/dL (0.6-1.3); SODIUM SERUM 137.0 mmol/L (136-145); UREA NITROGEN, BLOOD 17.0 mg/dL (7-18)
[2025-04-05 07:49] VITALS: BP 170/81; TEMP 97.6; O2SAT 97
[2025-04-05] MEDS: ASCORBIC ACID 500 MG TABLET PO SCH (08:56)
[2025-04-05] MEDS: EZETIMIBE 10 MG TABLET PO SCH (08:56)
[2025-04-05] MEDS: ESCITALOPRAM OXALATE 10 MG TABLET PO SCH (08:56)
[2025-04-05] MEDS: SPIRONOLACTONE 25 MG TABLET PO SCH (08:56)
[2025-04-05] MEDS ORDERED: NIFE-35 PO (09:47)
[2025-04-05] MEDS: VALSARTAN 160 MG TABLET PO SCH (09:58)
[2025-04-05 09:59] VITALS: BP 130/54
[2025-04-05] MEDS: TERAZOSIN 1 MG CAPSULE PO SCH (09:59)
== END 2025-04-05 12:45 | disposition home or self-care (01) | DRG 305 ==
LOC: ER 11:30 → TELE3 13:55
DX: I15.9 Secondary hypertension, unspecified (principal); I16.9 Hypertensive crisis, unspecified; E11.9 Type 2 diabetes mellitus without complications; E66.9 Obesity, unspecified; J44.9 Chronic obstructive pulmonary disease, unspecified; F32.A Depression, unspecified; I10 Essential (primary) hypertension; R51.9 Headache, unspecified; Z85.3 Personal history of malignant neoplasm of breast; Z85.820 Personal history of malignant melanoma of skin; E78.5 Hyperlipidemia, unspecified; Z68.33 Body mass index [BMI] 33.0-33.9, adult; Z90.12 Acquired absence of left breast and nipple; Z88.5 Allergy status to narcotic agent; Z88.1 Allergy status to other antibiotic agents; Z79.899 Other long term (current) drug therapy; Z79.84 Long term (current) use of oral hypoglycemic drugs; Z79.811 Long term (current) use of aromatase inhibitors; F41.9 Anxiety disorder, unspecified
CPT/HCPCS: 36415; 70450; 71045; 83735; 84100; 84443; 84484; 85025; 93307; G0378; J0360; J1650; J1815